=== PATIENT | female | born 1950 | race Caucasian/White ===

== ENCOUNTER 2019-10-19 06:35 | Emergency (ER) | payer MEDICAID, SELFPAY ==
[2019-10-19 06:48] VITALS: BP 159/81; PULSE 99; RESP 18; TEMP 36.9; O2SAT 96; BMI 32.3
--- NOTE | 2019-10-19 07:05 | CT_ITS ---
PROCEDURE: CT ABDOMEN PELVIS W CON CLINICAL INDICATION: right abd pain Right upper quadrant pain COMPARISON: No exams were available for comparison TECHNIQUE: IV Contrast: 75ML OPTIRAY 350 Oral Contrast None Axial images obtained with sagittal and coronal reformats. All CT scans at the facility use one or more dose reduction, viz: automated exposure control, ma/kV adjustment per patient size (including targeted exams where dose is matched to indication, i.e. head), or iterative reconstruction technique. FINDINGS: There are coronary artery calcifications. There is a well-circumscribed hypodense lesion in the right hepatic lobe lobular in nature measuring 2.2 cm and may represent a hepatic cyst. There is a small hiatal hernia. The gallbladder is slightly distended. The spleen, adrenal glands, and pancreas have an unremarkable appearance. There is cortical scarring of the right kidney with a right renal stone at 6 mm. The scarring is peripheral to the stone. This could even represent dystrophic parenchymal calcification unchanged from the previous study. No ureteral calculi. There is a mild amount of retained colonic feces. There is a ventral abdominal wall hernia containing a loop of large bowel. The hernia defect is 6.9 cm in with. The this hernia is 4.5 cm superior to an umbilical hernia which contains fat. There is also an additional ventral abdominal wall hernia containing fat which is 10 cm inferior to the xiphoid process. There is mild thickening of the distal stomach and proximal duodenum with mild surrounding fat haziness. No evidence of appendicitis. There is sigmoid diverticulosis but no evidence of diverticulitis. No abnormal fluid collections are evident. No acute bony anomaly. IMPRESSION: 1. Mild wall thickening of the distal stomach and proximal duodenum with mild surrounding fat haziness which may be seen with peptic ulcer disease/duodenitis/gastritis 2. Distended gallbladder. 3. There are at least 3 ventral abdominal wall hernias as described above. There is a loop of transverse colon within the mid ventral abdominal wall hernia with fat within the hernia superior to this and fat within the umbilical hernia. 4. Sigmoid diverticulosis. 5. Other nonacute findings as described above. Dictated by: Brian Whitney MD 10/19/2019 08:50 Brian Whitney MD in [place] 10/19/2019 08:50
[2019-10-19 07:13] VITALS: BP 134/74; PULSE 95
--- NOTE | 2019-10-19 07:16 | HMH.EDNVD ---
ED Disposition Condition on Discharge: Fair - Critical Care Critical Care Time: No <Nehemiah Matute - Last Filed: 10/19/19 07:52> Condition on Discharge: Fair <Sudarshan Moore - Last Filed: 10/19/19 08:30> Clinical Impression: Peptic ulcer disease Abdominal pain Qualifiers: Abdominal location: right lower quadrant Qualified Code(s): R10.31 - Right lower quadrant pain Disposition: Home, Self-Care Instructions: DI for Acute Abdomen, DI for Peptic Ulcer Prescriptions: Sucralfate [Carafate 1gm Tab] 1 gm PO ACHS #20 tab Transmission Status: [facility] to [facility] Pantoprazole Sodium [Protonix 40mg tablet] 40 mg PO DAILY #30 tab Transmission Status: Pending to [facility] Referrals: PCP,No [Primary Care Provider] - Attestation: On 10/19/19, the high probability of a clinically significant, sudden or life threatening deterioration of the following system(s) required my full and direct attention, intervention and personal management. The time I documented below is in addition to time spent performing reported procedures but includes the following listed in this critical care notation. Medical Decision Making - Medical Records Medical records reviewed: Yes: I reviewed the patient's medical records. - Terence Inquiry Pt receiving controlled substance: No - Lab Data Lab results reviewed: Yes: I reviewed the patient's lab results. Result diagrams: 10/19/19 07:01 10/19/19 07:01 <Nehemiah Matute - Last Filed: 10/19/19 07:52> - Lab Data Result diagrams: 10/19/19 07:01 10/19/19 07:01 - CT Data CT Scan: Abdomen, Pelvis Time Received: 08:27 - Reevaluation(s) Time: 08:30 <Sudarshan Moore - Last Filed: 10/19/19 08:30> Vital Signs: 10/19/19 06:48 10/19/19 07:13 10/19/19 07:29 Temperature 98.4 F Temperature Source Oral Pulse Rate [Right] 99 H 95 H 95 H Respiratory Rate 18 Blood Pressure [Right Arm] 159/81 H 134/74 125/70 Blood Pressure Mean [Right Arm] 107 94 88 Blood Pressure Source [Right Arm] Blood Pressure Position [Right Arm] Sitting Sitting 02 Sat by Pulse Oximetry 96 Oxygen Delivery Method Room Air 10/19/19 08:00 Temperature Temperature Source Pulse Rate [Right] 72 Respiratory Rate 20 Blood Pressure [Right Arm] 142/65 H Blood Pressure Mean [Right Arm] 90 Blood Pressure Source [Right Arm] Automatic Cuff Blood Pressure Position [Right Arm] Supine 02 Sat by Pulse Oximetry 92 L Oxygen Delivery Method Room Air - Lab Data Lab Results 10/19/19 07:01: WBC 8.7, RBC 5.26, Hgb 16.1, Hct 48.0 H, MCV 91.3, MCH 30.6, MCHC 33.5, RDW 13.8, Plt Count 218, MPV 7.9, Neut % (Auto) 49.5, Lymph % (Auto) 43.0, [place] % (Auto) 4.2, Eos % (Auto) 2.6, Baso % (Auto) 0.8, Neut # (Auto) 4.3, Lymph # (Auto) 3.8, [place] # (Auto) 0.4, Eos # (Auto) 0.2, Baso # (Auto) 0.1, ESR 14 10/19/19 07:01: Total Bilirubin 0.6, Direct Bilirubin 0.1, Conjugated Bilirubin 0.0, Indirect Bilirubin 0.5, Unconjugated Bilirubin 0.5, AST 61 H, ALT 65, Alkaline Phosphatase 118, C-Reactive Protein 8.1 H, Total Protein 7.8, Albumin 4.1, Amylase 59, Lipase 74 10/19/19 07:01: Lactate 1.8 10/19/19 07:01: Sodium 141, Potassium 4.2, Chloride 109 H, Carbon Dioxide 22, Anion Gap 14.2, BUN 12, Creatinine 0.70, Estimated Creat Clear 77, Estimated GFR 83, Est GFR ( Amer) 101, Glucose 128 H, Calcium 9.3 10/19/19 07:45: Urine Color Yellow, Urine Appearance Clear, Urine pH 7.0, Ur Specific [place] <= 1.005, Urine Protein Negative, Urine Glucose (UA) Negative, Urine Ketones Negative, Urine Blood Negative, Urine Nitrate Negative, Urine Bilirubin Negative, Urine Urobilinogen 0.2, Ur Leukocyte Esterase Trace, Urine RBC Occasional, Urine WBC 10-20, Ur Squamous Epith Cells 3-5, Urine Bacteria 1+ Orders (Tests/Meds): ED MEDICATIONS Generic Name Dose Route Start Last Admin Trade Name Freq PRN Reason Stop Dose Admin Sodium Chloride 8 ml 10/19/19 07:00 10/19/19 07:05 Sodium Chloride 0.9% 1
[2019-10-19 07:17] LABS: Basophils # 0.1 K/mm3 (0-0.2); Basophils % 0.8 % (0.1-2.0); Eosinophils # 0.2 K/mm3 (0.0-0.4); Eosinophils % 2.6 % (0.1-12.0); Hemoglobin 16.1 g/dL (12.2-16.2); Lymphocytes # 3.8 K/mm3 (0.7-4.5); Mean Corpuscular HGB Conc 33.5 g/dL (31.8-35.4); Mean Corpuscular Hemoglobin 30.6 pg (27.0-31.2); Mean Corpuscular Volume 91.3 fl (81-99); Mean Platelet Volume 7.9 fl (7.4-10.4); Monocytes # 0.4 K/mm3 (0.1-1.0); Monocytes % 4.2 % (1.7-9.3); Neutrophils # 4.3 K/mm3 (1.8-7.8); Neutrophils % 49.5 % (37.0-80.0); Platelet Count 218 K/mm3 (142-424); Red Blood Count 5.26 M/mm3 (4.20-5.40); Red Cell Distribution Width 13.8 % (11.5-17.5); White Blood Count 8.7 K/mm3 (4.8-10.8)
[2019-10-19 07:18] LABS: Chloride 109 mmol/L (98-107); Potassium 4.2 mmoL/L (3.5-5.1); Sodium 141 mmol/L (136-145)
[2019-10-19 07:20] LABS: Alanine Aminotransferase 65 U/L (12-78); Alkaline Phosphatase 118 U/L (38-126); Amylase 59 U/L (30-110); Aspartate Amino Transferase 61 U/L (14-36); Bilirubin,Direct 0.1 mg/dl (0.0-0.4); Bilirubin,Indirect 0.5 mg/dL (0.0-0.9); Bilirubin,Total 0.6 mg/dl (0.2-1.3); Bilirubin,Unconjugated 0.5 mg/dL (0.0-1.1)
[2019-10-19 07:21] LABS: Albumin Level 4.1 g/dl (3.5-5.0); Anion Gap 14.2 mEq/L (5-15); Blood Urea Nitrogen 12 mg/dl (7-17); Carbon Dioxide 22 mmol/L (22.0-30.0); Creatinine Clearance Estimated 77 mL/min (50-200); Estimated Glomerular Filt Rate 83 ml/min (>60); GFR (African American) 101 ML/MIN (>60); Lipase 74 U/L (23-300); Total Protein,Serum 7.8 g/dl (6.3-8.2)
[2019-10-19 07:22] LABS: Calcium 9.3 mg/dl (8.4-10.2); Glucose 128 mg/dl (74-100); Lactic Acid 1.8 mmol/L (0.7-2.1)
[2019-10-19 07:26] LABS: C-Reactive Protein 8.1 mg/L (0-4)
[2019-10-19 07:29] VITALS: BP 125/70; PULSE 95
[2019-10-19 07:45] LABS: Erythrocyte Sedimentation Rate 14 mm/hr (0-30)
[2019-10-19 07:58] LABS: Microscopic, Urine URINE MICROSCOPIC (MICROSCOPIC)
[2019-10-19 08:00] VITALS: BP 142/65; PULSE 72; RESP 20; O2SAT 92
[2019-10-19 08:00] LABS: Appearance,Urine CLEAR (Clear); Bilirubin,Urine Negative (Negative); Blood, Urine Negative (Negative); Color,Urine YELLOW (Yellow); Glucose,Urine (UA) Negative (Negative); Ketones,Urine Negative (Negative); Leukocyte Esterase,Urine TRACE (Negative); Nitrate,Urine Negative (Negative); Protein,Urine Negative (Negative); Specific Gravity, Urine <= 1.005 (1.005-1.030); Urobilinogen,Urine 0.2 EU/dl (0.2)
[2019-10-19 08:10] LABS: Bacteria,Urine 1+ /lpf; RBC,Urine Occasional #/hpf (0-3)
--- NOTE | 2019-10-19 08:25 | PC.NURSE ---
Dr Narvaez in with pt
[2019-10-19 08:45] VITALS: BP 125/78; PULSE 95; RESP 16; TEMP 36.6; O2SAT 98
== END 2019-10-19 08:47 | disposition home or self-care (01) ==
PROVIDERS: Emergency Provider Emergency Medicine
DX: K27.9 Peptic ulcer, site unspecified, unspecified as acute or chronic, without hemorrhage or perforation (principal); Z87.891 Personal history of nicotine dependence; Z88.5 Allergy status to narcotic agent; Z79.899 Other long term (current) drug therapy
CPT/HCPCS: 74177; 80048; 80076; 81001; 82150; 83605; 83690; 85025; 85651; 86140; 87040; 87086; 87088; 87186; 96365; 96375; 96376; 99284; J2405; Q9967

== ENCOUNTER 2021-09-20 13:35 | Inpatient (IN) | payer OTHER, SELFPAY ==
[2021-09-20] VITALS (11 sets, daily range): BP systolic 103–143; BP diastolic 62–85; PULSE 82–96; RESP 18–22; TEMP 36.4–36.9; O2SAT 86–95; BMI 33.3; BMI 34.9
--- NOTE | 2021-09-20 13:44 | XR_ITS ---
PROCEDURE INFORMATION: Exam: XR Chest Exam date and time: 09/20/2021 3:03 PM Age: 71 years old Clinical indication: Shortness of breath; Additional info: Short of breath TECHNIQUE: Imaging protocol: Radiologic exam of the chest. Views: 1 view. COMPARISON: CT ANGIO CHEST PE PROTOCOL 09/20/2021 2:35 PM FINDINGS: Lungs: Atelectatic and/or early infiltrative changes noted within both lung bases. Pleural spaces: There are no pleural effusions present. Heart/Mediastinum: Unremarkable. No cardiomegaly. Diaphragm: There is nonspecific elevation of the right hemidiaphragm. Bones/joints: The thoracic spine demonstrates mild degenerative changes at multiple levels. IMPRESSION: Atelectatic and/or early infiltrative changes noted within both lung bases.
--- NOTE | 2021-09-20 13:44 | CT_ITS ---
PROCEDURE INFORMATION: Exam: CTA Chest With Contrast Exam date and time: 09/20/2021 2:35 PM Age: 71 years old Clinical indication: Shortness of breath; Additional info: Hemoptysis, post-covid TECHNIQUE: Imaging protocol: Computed tomographic angiography of the chest with contrast. 3D rendering (Not supervised by radiologist): MIP and/or 3D reconstructed images were created by the technologist. Radiation optimization: All CT scans at this facility use at least one of these dose optimization techniques: automated exposure control; mA and/or kV adjustment per patient size (includes targeted exams where dose is matched to clinical indication); or iterative reconstruction. Contrast material: ISOVUE 370; Contrast volume: 75 ml; Contrast route: INTRAVENOUS (IV); COMPARISON: CR CXR1 CHEST-PORTABLE 01/08/2016 12:11 PM FINDINGS: Pulmonary arteries: No evidence of pulmonary embolism. Aorta: No evidence of aortic dissection. Lungs: Patchy airspace opacities noted within both lung bases. Pleural spaces: Small bilateral pleural effusions, greater on the right. Heart: Unremarkable. No cardiomegaly. No pericardial effusion. Lymph nodes: There is no evidence of mesenteric lymphadenopathy. Bones/joints: The thoracic spine demonstrates mild degenerative changes at multiple levels. Soft tissues: Unremarkable. IMPRESSION: 1. No evidence of pulmonary embolism. 2. No evidence of aortic dissection. 3. Patchy airspace opacities noted within both lung bases. 4. Small bilateral pleural effusions, greater on the right.
--- NOTE | 2021-09-20 13:45 | HMH.EDGENADL ---
ED Disposition Clinical Impression: Pneumonia Qualifiers: Pneumonia type: due to unspecified organism Laterality: bilateral Lung location: lower lobe of lung Qualified Code(s): J18.9 - Pneumonia, unspecified organism Respiratory failure with hypoxia Qualifiers: Chronicity: acute Qualified Code(s): J96.01 - Acute respiratory failure with hypoxia Disposition: Admitted As Inpatient Condition on Discharge: Serious Referrals: Provider,Referral, MD [Primary Care Provider] - Time of Disposition: 15:29 - Critical Care Critical Care Time: Yes (35 minutes) Attestation: On , the high probability of a clinically significant, sudden or life threatening deterioration of the following system(s) required my full and direct attention, intervention and personal management. The time I documented below is in addition to time spent performing reported procedures but includes the following listed in this critical care notation. Vital system(s) involved:: Respiratory Failure My critical care processes included: Assessment & monitoring of V/S, Initial and Re-exams, Data Review/Interpretation, Coordinating Care, Medication Orders and management, Documentation Medical Decision Making - Medical Records Medical records reviewed: Yes: I reviewed the patient's medical records. - Terence Inquiry Pt receiving controlled substance: No Vital Signs: 09/20/21 13:36 09/20/21 14:01 09/20/21 14:30 Temperature 98.5 F Temperature Source Oral Pulse Rate 94 H 85 Pulse Rate [Left Radial] 96 H Respiratory Rate 18 18 18 Blood Pressure 119/75 126/75 Blood Pressure [Right Arm] 143/84 H Blood Pressure Mean 89 92 Blood Pressure Mean [Right Arm] 103 Blood Pressure Source [Right Arm] Automatic Cuff Blood Pressure Position [Right Arm] Sitting 02 Sat by Pulse Oximetry 86 L 89 L 91 L Oxygen Delivery Method Room Air Nasal Cannula Nasal Cannula Oxygen Flow Rate (LPM) 4 10 09/20/21 15:00 09/20/21 15:31 Temperature Temperature Source Pulse Rate 86 85 Pulse Rate [Left Radial] Respiratory Rate 18 18 Blood Pressure 124/63 103/66 L Blood Pressure [Right Arm] Blood Pressure Mean 83 73 Blood Pressure Mean [Right Arm] Blood Pressure Source [Right Arm] Blood Pressure Position [Right Arm] 02 Sat by Pulse Oximetry 91 L 90 L Oxygen Delivery Method Nasal Cannula Nasal Cannula Oxygen Flow Rate (LPM) 10 10 - Lab Data Lab Results 09/20/21 13:44: VBG pH 7.42 H, VBG pCO2 38.8, VBG pO2 34.7, VBG HCO3 24.8, VBG Total CO2 26.0, VBG O2 Saturation 66.5, VBG Base Excess 0.4 09/20/21 13:45: WBC 6.1, RBC 5.15, Hgb 15.2, Hct 45.5, MCV 88.5, MCH 29.6, MCHC 33.5, RDW 13.6, Plt Count 222, MPV 7.5, Neut % (Auto) 50.0, Lymph % (Auto) 38.1, [place] % (Auto) 9.7 H, Eos % (Auto) 0.6, Baso % (Auto) 1.8, Neut # (Auto) 3.1, Lymph # (Auto) 2.3, [place] # (Auto) 0.6, Eos # (Auto) 0.0, Baso # (Auto) 0.1 09/20/21 13:45: Sodium 136, Potassium 3.6, Chloride 101, Carbon Dioxide 27, Anion Gap 11.6, BUN 9, Creatinine 0.60, Estimated Creat Clear 75, Estimated GFR 99, Est GFR ( Amer) 120, Glucose 114 H, Calcium 8.4, Total Bilirubin 0.6, AST 47 H, ALT 39, Alkaline Phosphatase 100, Troponin I < 0.01, NT-Pro-B Natriuret Pep 103, Total Protein 7.7, Albumin 3.8, Globulin 3.9 H, Albumin/Globulin Ratio 1.0 L Result diagrams: 09/20/21 13:45 09/20/21 13:45 Orders (Tests/Meds): ED MEDICATIONS Generic Name Dose Route Start Last Admin Trade Name Freq PRN Reason Stop Dose Admin Azithromycin 500 mg/ Sodium 250 mls @ 250 mls/hr 09/20/21 15:30 Chloride IV 10/04/21 15:29 Q24H THEE Ceftriaxone Sodium 1 gm/ 50 mls @ 100 mls/hr 09/20/21 15:30 09/20/21 15:44 Sodium Chloride IV 10/04/21 15:29 100 mls/hr Q24H THEE Administration Discontinued Medications Generic Name Dose Route Start Last Admin Trade Name Freq PRN Reason Stop Dose Admin Iopamidol 75 ml 09/20/21 14:49 09/20/21 14:49 Iopamidol-370 (76%);100ml Bottle IV 09/20/21 14:50 75 ml ON
--- NOTE | 2021-09-20 14:05 | PC.NURSE ---
IV established and blood sent to the lab. RT called for vbg order. family at the bedside.
[2021-09-20 14:13] LABS: VBG Base Excess 0.4 mmol/L (-2.4-2.3); VBG HCO3 24.8 mmol/L (23-30); VBG Oxygen Saturation 66.5 % (50-70); VBG PCO2 38.8 mmol/L (35-51); VBG PH 7.42 mmol/L (7.31-7.41); VBG PO2 34.7 mmol/L (28-40)
[2021-09-20 14:17] LABS: Basophils # 0.1 K/mm3 (0-0.2); Basophils % 1.8 % (0.1-2.0); Eosinophils % 0.6 % (0.1-12.0); Hematocrit 45.5 % (37.0-47.0); Hemoglobin 15.2 g/dL (12.2-16.2); Lymphocytes # 2.3 K/mm3 (0.7-4.5); Lymphocytes % 38.1 % (10-50); Mean Corpuscular HGB Conc 33.5 g/dL (31.8-35.4); Mean Corpuscular Hemoglobin 29.6 pg (27.0-31.2); Mean Corpuscular Volume 88.5 fl (81-99); Mean Platelet Volume 7.5 fl (7.4-10.4); Monocytes # 0.6 K/mm3 (0.1-1.0); Monocytes % 9.7 % (1.7-9.3); Neutrophils # 3.1 K/mm3 (1.8-7.8); Platelet Count 222 K/mm3 (142-424); Red Blood Count 5.15 M/mm3 (4.20-5.40); Red Cell Distribution Width 13.6 % (11.5-17.5); White Blood Count 6.1 K/mm3 (4.8-10.8)
[2021-09-20 14:22] LABS: Alanine Aminotransferase 39 U/L (12-78); Albumin Level 3.8 g/dl (3.5-5.0); Alkaline Phosphatase 100 U/L (38-126); Anion Gap 11.6 mEq/L (5-15); Aspartate Amino Transferase 47 U/L (14-36); Bilirubin,Total 0.6 mg/dl (0.2-1.3); Blood Urea Nitrogen 9 mg/dl (7-17); Calcium 8.4 mg/dl (8.4-10.2); Carbon Dioxide 27 mmol/L (22.0-30.0); Chloride 101 mmol/L (98-107); Creatinine Clearance Estimated 75 mL/min (50-200); Estimated Glomerular Filt Rate 99 ml/min (>60); GFR (African American) 120 ML/MIN (>60); Globulin 3.9 g/dL (1.3-3.2); Glucose 114 mg/dl (74-100); Potassium 3.6 mmoL/L (3.5-5.1); Sodium 136 mmol/L (136-145); Total Protein,Serum 7.7 g/dl (6.3-8.2)
[2021-09-20 14:34] LABS: NT Pro Brain Natriuretic Pep. 103 pg/mL (0-125)
[2021-09-20 14:36] LABS: Troponin I < 0.01 ng/ml (0.00-0.034)
--- NOTE | 2021-09-20 14:36 | PC.NURSE ---
pt to radiology via wheelchair
--- NOTE | 2021-09-20 14:50 | PC.NURSE ---
pt returned from radiology
--- NOTE | 2021-09-20 14:55 | PC.NURSE ---
Rad at bedside
--- NOTE | 2021-09-20 14:55 | PC.NURSE ---
Urine sent to lab
[2021-09-20 14:58] LABS: Microscopic, Urine URINE MICROSCOPIC (MICROSCOPIC)
--- NOTE | 2021-09-20 15:05 | PC.NURSE ---
SPOKE WITH RESP ABOUT POSSIBLE VAPOTHERM OR HIGH FLOW CANNULA , PT REFUSES BIPAP . RESP IS COMING DOWN TO ADJUST O2 PT IS ON 5 LPM VIA CANNULA O2 SAT 85%
[2021-09-20 15:06] LABS: Influenza A, PCR Not Detected (NotDetected); Influenza B, PCR Not Detected (NotDetected)
[2021-09-20 15:13] LABS: Appearance,Urine CLEAR (Clear); Bilirubin,Urine Negative (Negative); Blood, Urine Negative (Negative); Color,Urine YELLOW (Yellow); Glucose,Urine (UA) Negative (Negative); Ketones,Urine Negative (Negative); Leukocyte Esterase,Urine 1+ (Negative); Nitrate,Urine POSITIVE (Negative); PH,Urine 6.5 (5.0-8.5); Protein,Urine Negative (Negative); Specific Gravity, Urine <= 1.005 (1.005-1.030)
--- NOTE | 2021-09-20 15:17 | PC.NURSE ---
RT placed pt on 10LPM via high zita O2
--- NOTE | 2021-09-20 15:37 | PC.NURSE ---
PT UP TO KAJAL BRADY
--- NOTE | 2021-09-20 16:08 | PC.NURSE ---
spoke with dr bourgeois who agrees to admit. dry house worker notified.
--- NOTE | 2021-09-20 16:14 | PC.NURSE ---
calling for a tray for pt
[2021-09-20 16:17] LABS: Coronavirus 19, PCR Detected (NotDetected)
[2021-09-20 16:19] LABS: Bacteria,Urine 3+ /lpf; Squamous Epithelial Cell,Urine Occasional #/hpf (0-5)
--- NOTE | 2021-09-20 16:27 | PC.NURSE ---
PT EATING SANDWICH AND CHIPS
--- NOTE | 2021-09-20 16:34 | PC.NURSE ---
called report to everett almonte
--- NOTE | 2021-09-20 17:03 | PC.NURSE ---
PT BEING TRANSPORTED TO ACUTE CARE UNIT
[2021-09-20 17:34] LABS: Troponin I < 0.01 ng/ml (0.00-0.034)
--- NOTE | 2021-09-20 18:16 | PC.NURSE ---
Patient VSS on 10L HF NC with humidification; No acute distress noted at this time call light within reach bed at lowest level for safety; will continue to monitor.
[2021-09-21] VITALS: BP 125/71; PULSE 79; RESP 22; TEMP 36.7; O2SAT 94
[2021-09-21 04:00] VITALS: BP 116/66; PULSE 76; RESP 18; TEMP 36.8; O2SAT 91
[2021-09-21 04:40] VITALS: BMI 24.5
--- NOTE | 2021-09-21 04:43 | PC.NURSE ---
pt has been restless this shift, has been up to chair some this shift, pt was on high flow at beginning of shift, was turned up to 15L and saturations were not above 85-87%, global expansion sales director notified and pt was placed on vapotherm 20 L/100, sats since being placed on vapotherm have been 89-91%, pt has gotten up to BSC with desaturations noted to be 82-85%
--- NOTE | 2021-09-21 07:00 | XR_ITS ---
PROCEDURE INFORMATION: Exam: XR Chest Exam date and time: 09/21/2021 9:05 AM Age: 71 years old Clinical indication: Shortness of breath; Additional info: Pneumonia, covid TECHNIQUE: Imaging protocol: Radiologic exam of the chest. Views: 1 view. COMPARISON: 1. CR XR CHEST PORTABLE 09/20/2021 3:[address] ANGIO CHEST PE PROTOCOL 09/20/2021 2:35 PM FINDINGS: Lungs: Ill-defined opacities again noted at the lung bases. Pleural spaces: Unremarkable. No pleural effusion. No pneumothorax. Heart/Mediastinum: Unremarkable. No cardiomegaly. Bones/joints: Degenerative changes of the spine. IMPRESSION: No significant change.
[2021-09-21 07:50] LABS: Basophils # 0.1 K/mm3 (0-0.2); Basophils % 1.1 % (0.1-2.0); Eosinophils # 0.1 K/mm3 (0.0-0.4); Eosinophils % 1.2 % (0.1-12.0); Hematocrit 45.2 % (37.0-47.0); Hemoglobin 15.4 g/dL (12.2-16.2); Lymphocytes # 1.5 K/mm3 (0.7-4.5); Lymphocytes % 28.9 % (10-50); Mean Corpuscular HGB Conc 34.1 g/dL (31.8-35.4); Mean Corpuscular Hemoglobin 29.8 pg (27.0-31.2); Mean Corpuscular Volume 87.4 fl (81-99); Mean Platelet Volume 7.7 fl (7.4-10.4); Monocytes # 0.2 K/mm3 (0.1-1.0); Monocytes % 4.3 % (1.7-9.3); Neutrophils # 3.3 K/mm3 (1.8-7.8); Neutrophils % 64.6 % (37.0-80.0); Platelet Count 258 K/mm3 (142-424); Red Blood Count 5.17 M/mm3 (4.20-5.40); Red Cell Distribution Width 13.5 % (11.5-17.5); White Blood Count 5.1 K/mm3 (4.8-10.8)
[2021-09-21 07:58] LABS: Anion Gap 10.1 mEq/L (5-15); Blood Urea Nitrogen 10 mg/dl (7-17); Calcium 8.8 mg/dl (8.4-10.2); Carbon Dioxide 27 mmol/L (22.0-30.0); Chloride 106 mmol/L (98-107); Creatinine Clearance Estimated 57 mL/min (50-200); Estimated Glomerular Filt Rate 99 ml/min (>60); GFR (African American) 120 ML/MIN (>60); Glucose 168 mg/dl (74-100); Potassium 4.1 mmoL/L (3.5-5.1); Sodium 139 mmol/L (136-145)
[2021-09-21 08:00] VITALS: BP 148/69; PULSE 87; RESP 18; TEMP 36.6; O2SAT 95; O2SAT 97
--- NOTE | 2021-09-21 08:35 | P.CONPHA_ITS ---
[facility] VTE Monitoring - Patient Demographics Admission date: 09/21/21 Report Date: 09/21/21 Time: 08:35 Allergies/Adverse Reactions: Patient Allergies codeine [CODEINE] Allergy (Unknown, Verified 09/20/21 16:29) oxycodone [OXYCODONE] Allergy (Unknown, Verified 09/20/21 16:29) Height: 1.68 m Weight: 69.264 kg Patient Problems: Current Active Problems Pneumonia (Acute) Respiratory failure with hypoxia (Acute) - VTE Risk Labs: VTE Related Lab Results Hgb 15.4 g/dL (12.2-16.2) 09/21/21 07:41 Hct 45.2 % (37.0-47.0) 09/21/21 07:41 Plt Count 258 K/mm3 (142-424) 09/21/21 07:41 BUN 10 mg/dl (7-17) 09/21/21 07:41 Creatinine 0.60 mg/dl (0.52-1.04) 09/21/21 07:41 Estimated Creat Clear 57 mL/min (50-200) 09/21/21 07:41 Was VTE Risk Assessment Performed: Yes VTE Risk Level: Low Risk Clinical Trial Participant: No - Prophylaxis VTE Prophylaxis Ordered?: Yes Types of VTE Prophylaxis: TEDS Knee High Location of Applied Device: Bilateral Lower Extremeties
--- NOTE | 2021-09-21 09:30 | HMH.HP ---
*Admission Date: 09/21/21 *Chief complaint: shortness of breath *History of present illness: Ms. Wing is a 71-year-old female presenting to the emergency department last evening with cough and shortness of breath. She was diagnosed with COVID-19 2 weeks ago. Since then she has felt generally unwell, fatigued, rundown. She has had a cough that is constant and productive. Initially it was productive of sputum an in the last 2 days she has been coughing up chunks of dark red blood. She feels like she is breathing fast, unable to get enough air. Symptoms are worse when walking or exerting. Improved with rest. No chest pain, abdominal pain, nausea, vomiting. History of tobacco use disorder, quit about 6 years ago. She has a COPD, does not use inhalers or home oxygen. No recent antibiotic or steroid use. No leg swelling. No history of DVT or PE. She evaluated the emergency room. O2 sats on arrival were 88% on room air. She was initially started on 2 L of nasal oxygen and titrated to 4 L. CBC showed a normal white count. Venous blood gas showed no acidosis or CO2 retention. CT scan of the chest showed bilateral opacities and small pleural effusions. No pulmonary embolus. She was subsequent mated for further evaluation and treatment. Overnight she continued to be mildly hypoxic with O2 sats down to 87%. She was switched from high flow O2 to Vapotherm and O2 sats are now running in the mid 90s. She however is very anxious and quite adamant that she does not want to be placed on a mask or a ventilator. She states if I am going to I just want to go home and be with my family . [facility] History Medical History: Reports:: Atrial Fibrillation, Chronic Obstructive Pulmonary Disease (COPD), Gastroesophageal Reflux Disease(GERD) Denies:: Cancer, Diabetes Mellitus Type 1, Diabetes Mellitus Type 2, Internal Pacemaker, MRSA *Have you ever received a pneumonia vaccine?: No *Have you received a flu vaccine this season?: No Other Medical History: Reports: Other (peptic ulcer disease; diverticulosis) Comment:: She has a history of rheumatic fever as a child and having a heart attack at age 20. She, however has never been on heart medication. Other Surgeries: Yes: Tubal Ligation, Other (Patching of perforated duodenal ulcer 2015/Dr. Jay). No: Pacemaker Amputation: No Fractures: No - *Social History Last grade of school completed: 9th or 10th Smoking Status: Former smoker (Quit 6 years ago) Tobacco Type: cigarettes Alcohol Intake: never Substance Use Type: denies use *Occupational Status:: retired Housing: house Household Members: spouse, family *Travel in the last 8 weeks: None Family Hx:: No significant family history Review of Systems - Constitutional Reports lack of energy, Reports malaise, Reports weakness - Eyes Denies change in vision - ENT Reports dry mouth, Reports difficulty swallowing, Reports nasal congestion - *Cardiovascular Reports shortness of breath, Reports shortness of breath with activity, Denies chest pain, Denies irregular heart rhythm, Denies leg swelling, Denies rapid, pounding, or irregular heartbeat - *Respiratory Reports other (See HPI) - *Gastrointestinal Reports heartburn, Denies abdominal pain, Denies change in bowel habits - *Genitourinary Denies difficulty urinating - *Musculoskeletal Denies muscle cramps - Integumentary/Breasts Denies change in skin color - *Neurologic Reports weakness, Denies confusion, Denies dizziness, Denies localized weakness, Denies headache(s) Meds Home Medications Medication Instructions Recorded Confirmed Type No Known Home Medications 09/21/21 09/21/21 History Allergies Allergy/AdvReac Type Severity Reaction Status Date / Time codeine [CODEINE] Allergy Unknown Verified 09/20/21 16:29 oxycodone [OXYCODONE] Allergy Unknown Verified 09/20/21 16:29 Exam Vital signs and Labs for Last 24 Hours: Temp Pulse Resp BP Pulse Ox 97.9 F
--- NOTE | 2021-09-21 11:31 | PC.NURSE ---
1040-Spoke to Gigi CARBAJAL at this time regarding patient visitation. Gigi CARBAJAL approved for daughter to visit with patient as long as she wears her N95 while visiting. Informed patients daughter at this time and instructed her that she must wear her N95 while visiting, daughter was agreeable and verbalized understanding.
[2021-09-21 12:00] VITALS: BP 146/86; PULSE 85; RESP 20; TEMP 36.6; O2SAT 95
[2021-09-21 16:00] VITALS: BP 142/86; PULSE 82; RESP 18; TEMP 36.6; O2SAT 96
[2021-09-21 20:00] VITALS: BP 141/85; PULSE 79; RESP 19; TEMP 36.7; O2SAT 91
[2021-09-22] VITALS (8 sets, daily range): BP systolic 117–139; BP diastolic 67–84; PULSE 74–97; RESP 18–20; TEMP 36.4–36.7; O2SAT 90–98; BMI 29.0; BMI 28.7
--- NOTE | 2021-09-22 04:26 | PC.NURSE ---
Pt has rested well this shift. Alert and oriented x4. Bilateral lung sounds are diminished with expiratory ronchi on the right side. Pt remains on vapotherm with settings at 35LPM and 100% FiO2, tolerating well. Sats have been 90-92%. Her O2 sat did drop to 85% a couple of times when vapotherm was out of her nose. Pt has c/o a cough and lung pain on inspiration. Medicated per APR for pain. VSS.
--- NOTE | 2021-09-22 08:25 | P.PN_ITS ---
Internal Medicine - PN: Subj *Date: 09/22/21 *Time: 08:25 Interval history: She rested a little better last night. She is more calm and less short of breath this morning. Still has cough and reports some hemoptysis last night with right sided pleuritic type pain. Appetite a little better. She continues on Vapotherm with satisfactory O2 saturations Exam Vital signs and Labs for Last 24 Hours: Temp Pulse Resp BP Pulse Ox 97.9 F 97 H 18 120/83 92 L 09/22/21 16:00 09/22/21 16:00 09/22/21 16:00 09/22/21 16:00 09/22/21 16:00 Laboratory Results - last 24 hr 09/22/21 11:40: C-Reactive Protein 26.6 H I & O for Last 24 hours: Intake & Output 09/20/21 09/21/21 09/22/21 09/23/21 11:59 11:59 11:59 11:59 Intake Total 600 / 600 1860 / 1860 360 / 360 Output Total 800 / 800 1050 / 1050 1150 / 1150 Balance -200 / -200 810 / 810 -790 / -790 Weight 152 lb 11.2 oz 178 lb 9.191 oz Microbiology Reports for the Last 24 Hours: Microbiology 09/21/21 09:45 Sputum - Expectorated Sputum Gram Stain - Final 09/20/21 14:53 Urine,Clean Catch Urine Culture - Final Escherichia coli Narrative: She is sitting up in chair at bedside. Mild dyspnea with normal conversation. Color is good. Chest with bibasilar rales and scattered rhonchi. No wheezes. Heart is regular. Extremities no edema Assessment and Plan (1) COVID-19 virus infection Status: Acute Category: Medical Code(s): U07.1 - COVID-19 (2) Pneumonia Status: Acute Qualifiers: Pneumonia type: due to unspecified organism Laterality: bilateral Lung location: lower lobe of lung Qualified Code(s): J18.9 - Pneumonia, unspecified organism Category: Medical Code(s): J18.9 - Pneumonia, unspecified organism (3) Respiratory failure with hypoxia Status: Acute Qualifiers: Chronicity: acute Qualified Code(s): J96.01 - Acute respiratory failure wi th hypoxia Category: Medical Code(s): J96.91 - Respiratory failure, unspecified with hypoxia (4) COPD (chronic obstructive pulmonary disease) Status: Acute Category: Medical Code(s): J44.9 - Chronic obstructive pulmonary disease, unspecified (5) Anxiety Status: Acute Category: Medical Code(s): F41.9 - Anxiety disorder, unspecified (6) GERD (gastroesophageal reflux disease) Status: Acute Category: Medical Code(s): K21.9 - Gastro-esophageal reflux disease without esophagitis (7) Diverticulosis Status: Acute Category: Medical Code(s): K57.90 - Diverticulosis of intestine, part unspecified, without perforation or abscess without bleeding - Assessment and plan all Dx Assessment and Plan for all problems:: Continue current antibiotics pending culture results. Repeat chest x-ray. Consult with pulmonology.
--- NOTE | 2021-09-22 08:29 | XR_ITS ---
FINAL REPORT CLINICAL HISTORY: f/u pneumonia FINDINGS: A portable view of the chest was obtained. Comparison is made to a prior exam dated September 21, 2021. Cardiac and mediastinal silhouettes are within normal limits. There are increased interstitial markings with right basilar opacity that is stable. There is no pleural effusion or pneumothorax. IMPRESSION: Stable increased interstitial markings with right basilar opacity. Reviewed, Interpreted and Dictated by Juliette Byrnes MD Transcribed by Chio Rendon Authenticated and [facility]
--- NOTE | 2021-09-22 09:43 | HMH.PULMCON ---
*Admission Date: 09/21/21 *Reason for consult:: Acute on hypoxic respiratory failure, COVID-19 pneumonia *History of present illness: Ms. Wing is a 71-year-old female prior smoker greater than [id number] smoking history last smoked history diagnosed with COVID-19 pneumonia which she contracted from her daughter tested positive at home testing on 09/08/2021 with gradually worsening respiratory symptoms eventually presented to the ER and needing high flow Oxygen supplementations and pulmonary was called for further management. Patient is not vaccinated. She denies using any inhalers at baseline. Patient also complains of intermittent mild hemoptysis episodes. [facility] History Medical History: Reports:: Atrial Fibrillation, Chronic Obstructive Pulmonary Disease (COPD), Gastroesophageal Reflux Disease(GERD) Denies:: Cancer, Diabetes Mellitus Type 1, Diabetes Mellitus Type 2, Internal Pacemaker, MRSA *Have you ever received a pneumonia vaccine?: No *Have you received a flu vaccine this season?: No Other Medical History: Reports: Other (peptic ulcer disease; diverticulosis) Other Surgeries: Yes: Tubal Ligation, Other (Patching of perforated duodenal ulcer 2015/Dr. Jay). No: Pacemaker Amputation: No Fractures: No - *Social History Last grade of school completed: 9th or 10th Smoking Status: Former smoker (Quit 6 years ago) Tobacco Type: cigarettes Alcohol Intake: never Substance Use Type: denies use *Occupational Status:: retired Housing: house Household Members: spouse, family *Travel in the last 8 weeks: None Family Hx:: No significant family history ROS - Cons Reports body ache(s), Reports fatigue, Reports weakness - Eyes Reports blurry vision - ENT Denies difficulty swallowing - Card Reports shortness of breath, Reports shortness of breath with activity - Resp Respiratory: Reports chest congestion, Reports cough, Reports excessive phlegm production, Reports coughing up blood - GI Gastrointestingal: Denies: abdominal pain - Psych Denies thoughts of hurting/killing others, Denies thoughts of hurting/killing yourself Meds Home Medications Medication Instructions Recorded Confirmed Type No Known Home Medications 09/21/21 09/21/21 History Allergies Allergy/AdvReac Type Severity Reaction Status Date / Time codeine [CODEINE] Allergy Unknown Verified 09/20/21 16:29 oxycodone [OXYCODONE] Allergy Unknown Verified 09/20/21 16:29 Exam - Constitutional Constitutional:: Absent: no acute distress, comfortable - HENMT Exam HENMT: Present: normocephalic - Eye Exam Eyes:: Present: normal appearance both eyes and related structures - Neck Exam Neck:: Present: normal visual inspection - Respiratory Exam Respiratory:: Present: able to speak in complete sentences, respiratory distress, crackles. Absent: wheezing - Cardiovascular Exam Cardiac:: Present: S1, S2 - GI Exam GI:: Present: soft - Skin Exam Skin: Present: warm, no rash - Neurological Exam Neurological: Present: alert, awake - Extremities Exam Extremities: Present: no cyanosis, no clubbing, edema Internal Medicine - CN: Reslt - Labs CBC & Chem 7: 09/21/21 07:41 09/21/21 07:41 - ABG Interpretation ABG results: 09/20/21 13:44 VBG pH 7.42 H VBG pCO2 38.8 VBG pO2 34.7 VBG HCO3 24.8 VBG Total CO2 26.0 VBG O2 Saturation 66.5 VBG Base Excess 0.4 Assessment and Plan (1) COVID-19 virus infection Status: Acute Category: Medical Code(s): U07.1 - COVID-19 (2) Pneumonia Status: Acute Qualifiers: Pneumonia type: due to unspecified organism Laterality: bilateral Lung location: lower lobe of lung Qualified Code(s): J18.9 - Pneumonia, unspecified organism Category: Medical Code(s): J18.9 - Pneumonia, unspecified organism (3) Respiratory failure with hypoxia Status: Acute Qualifiers: Chronicity: acute Qualified Code(s): J96.01 - Acute respiratory failure with hypoxia
[2021-09-22 12:15] LABS: C-Reactive Protein 26.6 mg/L (0-4)
--- NOTE | 2021-09-22 17:34 | PC.NURSE ---
pt A&OX4, bilateral lung sounds are deminished. she has a productive cough with red tinged sputum. She has vapotherm set at 30 L and 70% FiO2, tolerating well. up to chair independently. no complaints of pain this shift.
[2021-09-23] VITALS (8 sets, daily range): BP systolic 113–141; BP diastolic 67–85; PULSE 79–97; RESP 17–22; TEMP 36.3–36.9; O2SAT 91–98; BMI 28.8
--- NOTE | 2021-09-23 03:58 | PC.NURSE ---
Pt is alert and oriented x4, has been resting throughout the shift. Pt is on vapotherm 30L and 70% FiO2, O2 sat >90%. Lung sounds are diminished but clear bilaterally. Pt has no complaints this shift. Pt has been up to BSC with standby assist.
--- NOTE | 2021-09-23 09:31 | HMH.PULMPN ---
Internal Medicine - PN: Subj *Date: 09/23/21 *Time: 10:53 Interval history: No acute respiratory events overnight. Exam - Constitutional Constitutional:: Absent: no acute distress, comfortable - HENMT Exam HENMT: Present: normocephalic - Eye Exam Eyes:: Present: normal appearance both eyes and related structures - Neck Exam Neck:: Present: normal visual inspection - Respiratory Exam Respiratory:: Present: able to speak in complete sentences, respiratory distress, crackles. Absent: wheezing - Cardiovascular Exam Cardiac:: Present: S1, S2 - GI Exam GI:: Present: soft - Skin Exam Skin: Present: warm - Neurological Exam Neurological: Present: alert, awake - Extremities Exam Extremities: Present: no cyanosis, no clubbing, edema Assessment and Plan (1) COVID-19 virus infection Status: Acute Category: Medical Code(s): U07.1 - COVID-19 (2) Pneumonia Status: Acute Qualifiers: Pneumonia type: due to unspecified organism Laterality: bilateral Lung location: lower lobe of lung Qualified Code(s): J18.9 - Pneumonia, unspecified organism Category: Medical Code(s): J18.9 - Pneumonia, unspecified organism (3) Respiratory failure with hypoxia Status: Acute Qualifiers: Chronicity: acute Qualified Code(s): J96.01 - Acute respiratory failure with hypoxia Category: Medical Code(s): J96.91 - Respiratory failure, unspecified with hypoxia (4) COPD (chronic obstructive pulmonary disease) Status: Acute Category: Medical Code(s): J44.9 - Chronic obstructive pulmonary disease, unspecified (5) Anxiety Status: Acute Category: Medical Code(s): F41.9 - Anxiety disorder, unspecified (6) GERD (gastroesophageal reflux disease) Status: Acute Category: Medical Code(s): K21.9 - Gastro-esophageal reflux disease without esophagitis (7) Diverticulosis Status: Acute Category: Medical Code(s): K57.90 - Diverticulosis of intestine, part unspecified, without perforation or abscess without bleeding - Assessment and plan all Dx Assessment and Plan for all problems:: #Acute hypoxic respiratory failure: # COVID-19 pneumonia: 71-year-old female prior smoker greater than [id number] smoking history last smoked 6 years ago Not vaccinated for COVID-19. Tested positive home testing on 09/08/2021, gradually worsening respiratory symptoms since then admits cough with worsening productive phlegm along with intermittent mild hemoptysis episodes. COVID-19 PCR positive, No evidence of leukocytosis. VBG on admission 7.42, [id number] and 34.7 CTA on admission no evidence of pulmonary embolism bilateral diffuse emphysematous changes along with groundglass opacities. No dense consolidation noted. Tiny right pleural effusion. Patient on admission appeared to be in severe respiratory distress. Bibasilar crackles and bilateral 1+ lower extremity edema. No wheezing on auscultation. On high flow nasal cannula 35 L 100% saturating 95%. Interval update: No acute respiratory vents. CRP elevated at 26.6. Respiratory status continued to improve. Requirements weaned to 40 L 55% this morning. We will continue to wean as tolerated. Denies any more episodes of hemoptysis. Plan: -Lasix 40 mg IV once -Initiate proning protocol -Continue high flow nasal oxygen supplementation -Initiate Advair 500 twice daily scheduled along with Combivent every 6 hours/DuoNebs every 6 hours on as-needed basis. -Dexamethasone 6 mg IV daily -Continue ceftriaxone azithromycin, follow with sputum and blood cultures. Follow with CRP. -Recommend chemical DVT prophylaxis and GI ulcer prophylaxis #Thank you for involving pulmonary in this patient care. We will continue to follow.
[2021-09-23 09:54] LABS: Basophils # 0.1 K/mm3 (0-0.2); Basophils % 0.6 % (0.1-2.0); Chloride 105 mmol/L (98-107); Eosinophils # 0.1 K/mm3 (0.0-0.4); Eosinophils % 0.9 % (0.1-12.0); Hematocrit 41.6 % (37.0-47.0); Hemoglobin 14.3 g/dL (12.2-16.2); Lymphocytes # 2.2 K/mm3 (0.7-4.5); Lymphocytes % 22.3 % (10-50); Mean Corpuscular HGB Conc 34.4 g/dL (31.8-35.4); Mean Corpuscular Hemoglobin 29.4 pg (27.0-31.2); Mean Corpuscular Volume 85.6 fl (81-99); Mean Platelet Volume 7.3 fl (7.4-10.4); Monocytes # 0.6 K/mm3 (0.1-1.0); Monocytes % 5.9 % (1.7-9.3); Neutrophils % 70.3 % (37.0-80.0); Platelet Count 344 K/mm3 (142-424); Potassium 3.7 mmoL/L (3.5-5.1); Red Blood Count 4.86 M/mm3 (4.20-5.40); Red Cell Distribution Width 13.4 % (11.5-17.5); Sodium 139 mmol/L (136-145)
[2021-09-23 09:57] LABS: Anion Gap 12.7 mEq/L (5-15); Blood Urea Nitrogen 14 mg/dl (7-17); Calcium 9.2 mg/dl (8.4-10.2); Carbon Dioxide 25 mmol/L (22.0-30.0); Creatinine Clearance Estimated 67 mL/min (50-200); Estimated Glomerular Filt Rate 99 ml/min (>60); GFR (African American) 120 ML/MIN (>60); Glucose 206 mg/dl (74-100)
--- NOTE | 2021-09-23 13:05 | HMH.ACPN2 ---
Internal Medicine - PN: Subj *Date: 09/23/21 *Time: 08:41 Interval history: I feel a lot better this morning . Slept through the night. No hemoptysis or pleuritic pain today. Appetite improving. Exam Vital signs and Labs for Last 24 Hours: Temp Pulse Resp BP Pulse Ox 97.3 F L 79 22 141/78 H 97 09/23/21 11:42 09/23/21 11:42 09/23/21 11:42 09/23/21 11:42 09/23/21 11:42 Laboratory Results - last 24 hr 09/23/21 09:37: WBC 10.0 D, RBC 4.86, Hgb 14.3, Hct 41.6, MCV 85.6, MCH 29.4, MCHC 34.4, RDW 13.4, Plt Count 344 D, MPV 7.3 L, Neut % (Auto) 70.3, Lymph % (Auto) 22.3, [place] % (Auto) 5.9, Eos % (Auto) 0.9, Baso % (Auto) 0.6, Neut # (Auto) 7.0, Lymph # (Auto) 2.2, [place] # (Auto) 0.6, Eos # (Auto) 0.1, Baso # (Auto) 0.1 09/23/21 09:37: Sodium 139, Potassium 3.7, Chloride 105, Carbon Dioxide 25, Anion Gap 12.7, BUN 14 D, Creatinine 0.60, Estimated Creat Clear 67, Estimated GFR 99, Est GFR ( Amer) 120, Glucose 206 H, Calcium 9.2 I & O for Last 24 hours: Intake & Output 09/21/21 09/22/21 09/23/21 09/24/21 11:59 11:59 11:59 11:59 Intake Total 600 / 600 1860 / 1860 960 / 960 Output Total 800 / 800 1050 / 1050 2200 / 2200 Balance -200 / -200 810 / 810 -1240 / -1240 Weight 152 lb 11.2 oz 178 lb 9.191 oz 179 lb 4.8 oz Microbiology Reports for the Last 24 Hours: Microbiology 09/21/21 09:45 Sputum - Expectorated Sputum Gram Stain - Final 09/21/21 09:45 Sputum - Expectorated Sputum Sputum Culture - Preliminary Narrative: She is up in the chair. Continues on Vapotherm. No respiratory distress. Lungs with generally diminished breath sounds. Few bibasilar crackles. No wheezes. Extremities no edema. Urine culture growing E. coli sensitive to ceftriaxone Assessment and Plan (1) COVID-19 virus infection Status: Acute Category: Medical Code(s): U07.1 - COVID-19 (2) Pneumonia Status: Acute Qualifiers: Pneumonia type: due to unspecified organism Laterality: bilateral Lung location: lower lobe of lung Qualified Code(s): J18.9 - Pneumonia, unspecified organism Category: Medical Code(s): J18.9 - Pneumonia, unspecified organism (3) Respiratory failure with hypoxia Status: Acute Qualifiers: Chronicity: acute Qualified Code(s): J96.01 - Acute respiratory failure with hypoxia Category: Medical Code(s): J96.91 - Respiratory failure, unspecified with hypoxia (4) COPD (chronic obstructive pulmonary disease) Status: Acute Category: Medical Code(s): J44.9 - Chronic obstructive pulmonary disease, unspecified (5) Anxiety Status: Acute Category: Medical Code(s): F41.9 - Anxiety disorder, unspecified (6) GERD (gastroesophageal reflux disease) Status: Acute Category: Medical Code(s): K21.9 - Gastro-esophageal reflux disease without esophagitis (7) Diverticulosis Status: Acute Category: Medical Code(s): K57.90 - Diverticulosis of intestine, part unspecified, without perforation or abscess without bleeding (8) E. coli UTI Status: Acute Category: Medical Code(s): N39.0 - Urinary tract infection, site not specified; B96.20 - Unspecified Escherichia coli [E. coli] as the cause of diseases classified elsewhere - Assessment and plan all Dx Assessment and Plan for all problems:: Pulmonology consult appreciated. Continue current antibiotics. Wean oxygen as tolerated.
--- NOTE | 2021-09-23 17:34 | PC.NURSE ---
pt is alert and oriented X4. she is on vapotherm at 30 L and 55% FiO2, O2 sats in the 90s. bilateral lung sounds are diminished but clear. a new IV was started in the left forearm. pt has been up to the chair. she has been to the BSC independently. no complaints of pain this shift.
--- NOTE | 2021-09-23 18:36 | PC.NURSE ---
Pt is wet with sweat that has saturated his clothes and sheets. He allowed us to do a bed change but he is refusing to allow us to put on a clean gown.
[2021-09-24] VITALS (11 sets, daily range): BP systolic 120–137; BP diastolic 66–79; PULSE 68–88; RESP 16–20; TEMP 36.4–36.8; O2SAT 86–98; BMI 26.4
--- NOTE | 2021-09-24 04:07 | PC.NURSE ---
pt has rested well this shift, remains on vapotherm 30L/70%, O2 sats 92-96%, using BSC with standby assist, no complaints of pain or SOA
[2021-09-24 07:29] LABS: Anion Gap 12.3 mEq/L (5-15); Blood Urea Nitrogen 15 mg/dl (7-17); Calcium 8.9 mg/dl (8.4-10.2); Carbon Dioxide 25 mmol/L (22.0-30.0); Chloride 105 mmol/L (98-107); Creatinine Clearance Estimated 62 mL/min (50-200); Estimated Glomerular Filt Rate 99 ml/min (>60); GFR (African American) 120 ML/MIN (>60); Glucose 129 mg/dl (74-100); Potassium 4.3 mmoL/L (3.5-5.1); Sodium 138 mmol/L (136-145)
--- NOTE | 2021-09-24 08:04 | P.PN_ITS ---
Internal Medicine - PN: Subj *Date: 09/24/21 *Time: 08:04 Exam Vital signs and Labs for Last 24 Hours: Temp Pulse Resp BP Pulse Ox 98 F 68 17 124/66 98 09/24/21 04:00 09/24/21 04:00 09/24/21 04:00 09/24/21 04:00 09/24/21 06:25 Laboratory Results - last 24 hr 09/23/21 09:37: WBC 10.0 D, RBC 4.86, Hgb 14.3, Hct 41.6, MCV 85.6, MCH 29.4, MCHC 34.4, RDW 13.4, Plt Count 344 D, MPV 7.3 L, Neut % (Auto) 70.3, Lymph % (Auto) 22.3, [place] % (Auto) 5.9, Eos % (Auto) 0.9, Baso % (Auto) 0.6, Neut # (Auto) 7.0, Lymph # (Auto) 2.2, [place] # (Auto) 0.6, Eos # (Auto) 0.1, Baso # (Auto) 0.1 09/23/21 09:37: Sodium 139, Potassium 3.7, Chloride 105, Carbon Dioxide 25, Anion Gap 12.7, BUN 14 D, Creatinine 0.60, Estimated Creat Clear 67, Estimated GFR 99, Est GFR ( Amer) 120, Glucose 206 H, Calcium 9.2 09/24/21 06:52: Sodium 138, Potassium 4.3, Chloride 105, Carbon Dioxide 25, Ani on Gap 12.3, BUN 15, Creatinine 0.60, Estimated Creat Clear 62, Estimated GFR 99, Est GFR ( Amer) 120, Glucose 129 H D, Calcium 8.9 I & O for Last 24 hours: Intake & Output 09/21/21 09/22/21 09/23/21 09/24/21 23:59 23:59 23:59 23:59 Intake Total 1979 / 1979 1080 / 1080 720 / 720 Output Total 1500 / 1500 1500 / 1500 1950 / 1950 1000 / 1000 Balance 480 / 480 -420 / -420 -1230 / -1230 -1000 / -1000 Weight 69.264 kg 81 kg 81.329 kg 74.48 kg Microbiology Reports for the Last 24 Hours: Microbiology 09/21/21 09:45 Sputum - Expectorated Sputum Gram Stain - Final 09/21/21 09:45 Sputum - Expectorated Sputum Sputum Culture - Preliminary Assessment and Plan (1) COVID-19 virus infection Status: Acute Category: Medical Code(s): U07.1 - COVID-19 (2) Pneumonia Status: Acute Qualifiers: Pneumonia type: due to unspecified organism Laterality: bilateral Lung location: lower lobe of lung Qualified Code(s): J18.9 - Pneumonia, unspecified organism Category: Medical Code(s): J18.9 - Pneumonia, unspecified organism (3) Respiratory failure with hypoxia Status: Acute Qualifiers: Chronicity: acute Qualified Code(s): J96.01 - Acute respiratory failure with hypoxia Category: Medical Code(s): J96.91 - Respiratory failure, unspecified with hypoxia (4) COPD (chronic obstructive pulmonary disease) Status: Acute Category: Medical Code(s): J44.9 - Chronic obstructive pulmonary disease, unspecified (5) Anxiety Status: Acute Category: Medical Code(s): F41.9 - Anxiety disorder, unspecified (6) GERD (gastroesophageal reflux disease) Status: Acute Category: Medical Code(s): K21.9 - Gastro-esophageal reflux disease without esophagitis (7) Diverticulosis Status: Acute Category: Medical Code(s): K57.90 - Diverticulosis of intestine, part unspecified, without perforation or abscess without bleeding (8) E. coli UTI Status: Acute Category: Medical Code(s): N39.0 - Urinary tract infection, site not specified; B96.20 - Unspecified Escherichia coli [E. coli] as the cause of diseases classified elsewhere The patient's infection will respond to the chosen ABx?: Yes Is the patient receiving the right drug, dose, and route?: Yes Could a more targeted ABx be ordered?: No (URINE CX + FOR E COLI. SENSITIVE TO ROCEPHIN. RECOMMEND CONTINUE CURRENT.)
--- NOTE | 2021-09-24 08:21 | HMH.ACPN2 ---
<Macie Reyes - Last Filed: 09/24/21 08:21> Internal Medicine - PN: Subj *Date: 09/24/21 *Time: 08:21 Interval history: Doing well. Remains on Vapotherm. O2 sats 92 to 98%. She denies shortness of breath. She is ambulated in the room with other activities. She denies dyspnea with exertion. She denies pain. She is eating without difficulty. She is voiding QS and bowels have moved. Exam Vital signs and Labs for Last 24 Hours: Temp Pulse Resp BP Pulse Ox 97.5 F L 88 16 120/74 95 09/24/21 08:00 09/24/21 08:00 09/24/21 08:00 09/24/21 08:00 09/24/21 08:00 Laboratory Results - last 24 hr 09/23/21 09:37: WBC 10.0 D, RBC 4.86, Hgb 14.3, Hct 41.6, MCV 85.6, MCH 29.4, MCHC 34.4, RDW 13.4, Plt Count 344 D, MPV 7.3 L, Neut % (Auto) 70.3, Lymph % (Auto) 22.3, [place] % (Auto) 5.9, Eos % (Auto) 0.9, Baso % (Auto) 0.6, Neut # (Auto) 7.0, Lymph # (Auto) 2.2, [place] # (Auto) 0.6, Eos # (Auto) 0.1, Baso # (Auto) 0.1 09/23/21 09:37: Sodium 139, Potassium 3.7, Chloride 105, Carbon Dioxide 25, Anion Gap 12.7, BUN 14 D, Creatinine 0.60, Estimated Creat Clear 67, Estimated GFR 99, Est GFR ( Amer) 120, Glucose 206 H, Calcium 9.2 09/24/21 06:52: Sodium 138, Potassium 4.3, Chloride 105, Carbon Dioxide 25, Anion Gap 12.3, BUN 15, Creatinine 0.60, Estimated Creat Clear 62, Estimated GFR 99, Est GFR ( Amer) 120, Glucose 129 H D, Calcium 8.9 I & O for Last 24 hours: Intake & Output 09/21/21 09/22/21 09/23/21 09/24/21 11:59 11:59 11:59 11:59 Intake Total 600 / 600 1860 / 1860 960 / 960 480 / 480 Output Total 800 / 800 1050 / 1050 3100 / 3100 1000 / 1000 Balance -200 / -200 810 / 810 -2140 / -2140 -520 / -520 Weight 152 lb 11.2 oz 178 lb 9.191 oz 179 lb 4.8 oz 164 lb 3.2 oz Microbiology Reports for the Last 24 Hours: Microbiology 09/21/21 09:45 Sputum - Expectorated Sputum Gram Stain - Final 09/21/21 09:45 Sputum - Expectorated Sputum Sputum Culture - Preliminary - Constitutional no acute distress Comments: Sitting up in bedside chair. Appears comfortable. - *Routine Respiratory Exam Present: CTA bilaterally (Anteriorly and posteriorly) - *Routine Cardiovascular Exam Present: RRR - *Routine Abdominal Exam Present: soft, normoactive bowel sounds. Absent: tenderness - *Routine Extremities Exam Present: BOBBY stockings. Absent: edema - *Routine Neurological Exam Present: alert, oriented X3 Assessment and Plan (1) COVID-19 virus infection Status: Acute Category: Medical Code(s): U07.1 - COVID-19 (2) Pneumonia Status: Acute Qualifiers: Pneumonia type: due to unspecified organism Laterality: bilateral Lung location: lower lobe of lung Qualified Code(s): J18.9 - Pneumonia, unspecified organism Category: Medical Code(s): J18.9 - Pneumonia, unspecified organism (3) Respiratory failure with hypoxia Status: Acute Qualifiers: Chronicity: acute Qualified Code(s): J96.01 - Acute respiratory failure with hypoxia Category: Medical Code(s): J96.91 - Respiratory failure, unspecified with hypoxia (4) COPD (chronic obstructive pulmonary disease) Status: Acute Category: Medical Code(s): J44.9 - Chronic obstructive pulmonary disease, unspecified (5) Anxiety Status: Acute Category: Medical Code(s): F41.9 - Anxiety disorder, unspecified (6) GERD (gastroesophageal reflux disease) Status: Acute Category: Medical Code(s): K21.9 - Gastro-esophageal reflux disease without esophagitis (7) Diverticulosis Status: Acute Category: Medical Code(s): K57.90 - Diverticulosis of intestine, part unspecified, without perforation or abscess without bleeding (8) E. coli UTI Status: Acute Category: Medical Code(s): N39.0 - Urinary tract infection, site not specified; B96.20 - Unspecified Escherichia coli [E. coli] as the cause of diseases classified elsewhere - Assessment and plan all Dx Assessment and Plan for all problems:: Wean
[2021-09-24 08:26] LABS: Hemoglobin A1C 6.2 % (4.0-6.0)
--- NOTE | 2021-09-24 09:54 | PC.NURSE ---
RESP CARE NOTE: Pt SPO2 at 93% on 30L/45% oxygen weaned to 30 L/40% FIO2. Will continue to monitor and wean appropriately.
--- NOTE | 2021-09-24 10:08 | HMH.PULMPN ---
Internal Medicine - PN: Subj *Date: 09/24/21 *Time: 12:11 Interval history: No acute respiratory vents overnight. Admits continued improvement in symptoms. Exam - Constitutional Constitutional:: Present: no acute distress, comfortable - HENMT Exam HENMT: Present: normocephalic - Eye Exam Eyes:: Present: normal appearance both eyes and related structures - Neck Exam Neck:: Present: normal visual inspection - Respiratory Exam Respiratory:: Present: able to speak in complete sentences, no respiratory distress. Absent: wheezing - Cardiovascular Exam Cardiac:: Present: S1, S2 - GI Exam GI:: Present: soft - Skin Exam Skin: Present: warm, no rash - Neurological Exam Neurological: Present: alert, awake - Extremities Exam Extremities: Present: no cyanosis, no clubbing, no edema Assessment and Plan (1) COVID-19 virus infection Status: Acute Category: Medical Code(s): U07.1 - COVID-19 (2) Pneumonia Status: Acute Qualifiers: Pneumonia type: due to unspecified organism Laterality: bilateral Lung location: lower lobe of lung Qualified Code(s): J18.9 - Pneumonia, unspecified organism Category: Medical Code(s): J18.9 - Pneumonia, unspecified organism (3) Respiratory failure with hypoxia Status: Acute Qualifiers: Chronicity: acute Qualified Code(s): J96.01 - Acute respiratory failure with hypoxia Category: Medical Code(s): J96.91 - Respiratory failure, unspecified with hypoxia (4) COPD (chronic obstructive pulmonary disease) Status: Acute Category: Medical Code(s): J44.9 - Chronic obstructive pulmonary disease, unspecified (5) Anxiety Status: Acute Category: Medical Code(s): F41.9 - Anxiety disorder, unspecified (6) GERD (gastroesophageal reflux disease) Status: Acute Category: Medical Code(s): K21.9 - Gastro-esophageal reflux disease without esophagitis (7) Diverticulosis Status: Acute Category: Medical Code(s): K57.90 - Diverticulosis of intestine, part unspecified, without perforation or abscess without bleeding (8) E. coli UTI Status: Acute Category: Medical Code(s): N39.0 - Urinary tract infection, site not specified; B96.20 - Unspecified Escherichia coli [E. coli] as the cause of diseases classified elsewhere - Assessment and plan all Dx Assessment and Plan for all problems:: #Acute hypoxic respiratory failure: # COVID-19 pneumonia: 71-year-old female prior smoker greater than [id number] smoking history last smoked 6 years ago Not vaccinated for COVID-19. Tested positive home testing on 09/08/2021, gradually worsening respiratory symptoms since then admits cough with worsening productive phlegm along with intermittent mild hemoptysis episodes. COVID-19 PCR positive, No evidence of leukocytosis. VBG on admission 7.42, rvB864.8 and 34.7 CTA on admission no evidence of pulmonary embolism bilateral diffuse emphysematous changes along with groundglass opacities. No dense consolidation noted. Tiny right pleural effusion. Patient on admission appeared to be in severe respiratory distress. Bibasilar crackles and bilateral 1+ lower extremity edema. No wheezing on auscultation. On high flow nasal cannula 35 L 100% saturating 95%. CRP elevated at 26.6. Interval update: No acute respiratory vents overnight. Patient admits continued improvement in her symptoms. Improving oxygen requirements. Plan: -Weaned to nasal cannula 6 L with O2 saturation goal of 90% and above. Continue to wean as tolerated. -Continue Advair 500 twice daily scheduled along with Combivent every 6 hours/DuoNebs every 6 hours on as-needed basis. -Dexamethasone 6 mg IV daily until discharge, can be changed to prednisone 40 mg daily with a 14-day taper upon discharge. -Continue ceftriaxone azithromycin x 5 days -Recommend chemical DVT prophylaxis and GI ulcer prophylaxis #Thank you for involving pulmonary in this patient care. We will continue to follow.
--- NOTE | 2021-09-24 11:00 | PC.NURSE ---
Rounded on this pt, cleaned and straightened room. Pt up in chair watching tv with no needs voiced.
--- NOTE | 2021-09-24 13:32 | PC.NURSE ---
rounded on patient. main concerns is she hasn't ate well because of the food that has been sent up. patient states she is gluten free so this was added to her diet order. patient request taken for dinner and called down to dietary with this; and menu for tomorrow given to patient. she was sitting up in chair at this time. lunch tray from today thrown away per patient request. offered more food but patient states daughter is bringing her food. no other questions or concerns. encouraged her to ring out as needed
--- NOTE | 2021-09-24 17:37 | PC.NURSE ---
Pt is alert and oriented x4. Lungs are clear but diminished. She has been weaned to 6L NC and tolerating well. She has ambulated in her room independently. She's denied any complaints. Appetite has been good. She is currently up to the chair, call light is within reach.
[2021-09-25] VITALS: BP 123/79; PULSE 90; RESP 18; TEMP 36.6; O2SAT 91
[2021-09-25 04:00] VITALS: BP 123/62; PULSE 80; RESP 18; TEMP 36.7; O2SAT 89
[2021-09-25 04:06] VITALS: BMI 27.0
--- NOTE | 2021-09-25 06:42 | PC.NURSE ---
Pt tolerating 6L nc well with sats >90%. Attempted to titrate pt down to 5 L nc but pt sat dropped to mid 80s. Lung sounds diminished. No complaints voiced to staff. Call light within reach.
[2021-09-25 06:56] VITALS: O2SAT 97
[2021-09-25 08:00] VITALS: BP 117/71; PULSE 74; RESP 20; TEMP 36.3; O2SAT 95; O2SAT 96
--- NOTE | 2021-09-25 08:45 | HMH.ACPN2 ---
<Meri Reyna - Last Filed: 09/25/21 08:45> Internal Medicine - PN: Subj *Date: 09/25/21 *Time: 08:45 Interval history: Patient states she is feeling well this morning. She did sleep last night but had some issues with restless legs. She has been up this morning and had her breakfast and is getting ready to drink some V8 juice. She denies any pain or shortness of breath. Exam Vital signs and Labs for Last 24 Hours: Temp Pulse Resp BP Pulse Ox 97.4 F L 74 20 117/71 96 09/25/21 08:00 09/25/21 08:00 09/25/21 08:00 09/25/21 08:00 09/25/21 08:00 I & O for Last 24 hours: Intake & Output 09/22/21 09/23/21 09/24/21 09/25/21 11:59 11:59 11:59 11:59 Intake Total 1860 / 1860 960 / 960 720 / 720 1400 / 1400 Output Total 1050 / 1050 3100 / 3100 1999 / 1999 Balance 810 / 810 -2140 / -2140 -1280 / -1280 1400 / 1400 Weight 178 lb 9.191 oz 179 lb 4.8 oz 164 lb 3.2 oz 168 lb 5 oz Microbiology Reports for the Last 24 Hours: Microbiology 09/21/21 09:45 Sputum - Expectorated Sputum Gram Stain - Final 09/21/21 09:45 Sputum - Expectorated Sputum Sputum Culture - Preliminary - Constitutional no acute distress - *Routine Respiratory Exam Present: decreased breath sounds - *Routine Cardiovascular Exam Present: RRR - *Routine Abdominal Exam Present: soft, normoactive bowel sounds. Absent: tenderness - *Routine Extremities Exam Absent: cyanosis, clubbing, edema - *Routine Skin Exam Present: warm. Absent: rash - *Routine Neurological Exam Present: alert, oriented X3 Assessment and Plan (1) COVID-19 virus infection Status: Acute Category: Medical Code(s): U07.1 - COVID-19 (2) Pneumonia Status: Acute Qualifiers: Pneumonia type: due to unspecified organism Laterality: bilateral Lung location: lower lobe of lung Qualified Code(s): J18.9 - Pneumonia, unspecified organism Category: Medical Code(s): J18.9 - Pneumonia, unspecified organism (3) Respiratory failure with hypoxia Status: Acute Qualifiers: Chronicity: acute Qualified Code(s): J96.01 - Acute respiratory failure with hypoxia Category: Medical Code(s): J96.91 - Respiratory failure, unspecified with hypoxia (4) COPD (chronic obstructive pulmonary disease) Status: Acute Category: Medical Code(s): J44.9 - Chronic obstructive pulmonary disease, unspecified (5) Anxiety Status: Acute Category: Medical Code(s): F41.9 - Anxiety disorder, unspecified (6) GERD (gastroesophageal reflux disease) Status: Acute Category: Medical Code(s): K21.9 - Gastro-esophageal reflux disease without esophagitis (7) Diverticulosis Status: Acute Category: Medical Code(s): K57.90 - Diverticulosis of intestine, part unspecified, without perforation or abscess without bleeding (8) E. coli UTI Status: Acute Category: Medical Code(s): N39.0 - Urinary tract infection, site not specified; B96.20 - Unspecified Escherichia coli [E. coli] as the cause of diseases classified elsewhere - Assessment and plan all Dx Assessment and Plan for all problems:: Patient improving. Pulmonology to follow. <Imtiaz Branch - Last Filed: 09/25/21 22:25> Internal Medicine - PN: Subj *Date: 09/25/21 *Time: 10:34 Exam Vital signs and Labs for Last 24 Hours: Temp Pulse Resp BP Pulse Ox 97.4 F L 74 20 117/71 95 09/25/21 08:00 09/25/21 08:00 09/25/21 08:00 09/25/21 08:00 09/25/21 08:00 I & O for Last 24 hours: Intake & Output 09/23/21 09/24/21 09/25/21 09/26/21 11:59 11:59 11:59 11:59 Intake Total 960 / 960 720 / 720 1760 / 1760 Output Total 3100 / 3100 1999 / 1999 1000 / 1000 Balance -2140 / -2140 -1280 / -1280 760 / 760 Weight 179 lb 4.8 oz 164 lb 3.2 oz 168 lb 5 oz Microbiology Reports for the Last 24 Hours: Microbiology 09/21/21 09:45 Sputum - Expectorated Sputum Gram Stain - Final 09/21/21 09:45 Sputum - Expectorated Sputum Spu
--- NOTE | 2021-09-25 09:31 | HMH.PULMPN ---
Internal Medicine - PN: Subj *Date: 09/25/21 *Time: 10:46 Interval history: No acute respiratory vents overnight. Patient admits continued improvement in her symptoms. Exam - Constitutional Constitutional:: Present: no acute distress, comfortable - HENMT Exam HENMT: Present: normocephalic - Eye Exam Eyes:: Present: normal appearance both eyes and related structures - Neck Exam Neck:: Present: normal visual inspection - Respiratory Exam Respiratory:: Present: able to speak in complete sentences, no respiratory distress. Absent: wheezing - Cardiovascular Exam Cardiac:: Present: S1, S2 - GI Exam GI:: Present: soft - Skin Exam Skin: Present: warm, no rash - Neurological Exam Neurological: Present: alert, awake - Extremities Exam Extremities: Present: no cyanosis, no clubbing Assessment and Plan (1) COVID-19 virus infection Status: Acute Category: Medical Code(s): U07.1 - COVID-19 (2) Pneumonia Status: Acute Qualifiers: Pneumonia type: due to unspecified organism Laterality: bilateral Lung location: lower lobe of lung Qualified Code(s): J18.9 - Pneumonia, unspecified organism Category: Medical Code(s): J18.9 - Pneumonia, unspecified organism (3) Respiratory failure with hypoxia Status: Acute Qualifiers: Chronicity: acute Qualified Code(s): J96.01 - Acute respiratory failure with hypoxia Category: Medical Code(s): J96.91 - Respiratory failure, unspecified with hypoxia (4) COPD (chronic obstructive pulmonary disease) Status: Acute Category: Medical Code(s): J44.9 - Chronic obstructive pulmonary disease, unspecified (5) Anxiety Status: Acute Category: Medical Code(s): F41.9 - Anxiety disorder, unspecified (6) GERD (gastroesophageal reflux disease) Status: Acute Category: Medical Code(s): K21.9 - Gastro-esophageal reflux disease without esophagitis (7) Diverticulosis Status: Acute Category: Medical Code(s): K57.90 - Diverticulosis of intestine, part unspecified, without perforation or abscess without bleeding (8) E. coli UTI Status: Acute Category: Medical Code(s): N39.0 - Urinary tract infection, site not specified; B96.20 - Unspecified Escherichia coli [E. coli] as the cause of diseases classified elsewhere - Assessment and plan all Dx Assessment and Plan for all problems:: #Acute hypoxic respiratory failure: # COVID-19 pneumonia: 71-year-old female prior smoker greater than [id number] smoking history last smoked 6 years ago Not vaccinated for COVID-19. Tested positive home testing on 09/08/2021, gradually worsening respiratory symptoms since then admits cough with worsening productive phlegm along with intermittent mild hemoptysis episodes. COVID-19 PCR positive, No evidence of leukocytosis. VBG on admission 7.42, isE098.8 and 34.7 CTA on admission no evidence of pulmonary embolism bilateral diffuse emphysematous changes along with groundglass opacities. No dense consolidation noted. Tiny right pleural effusion. Patient on admission appeared to be in severe respiratory distress. Bibasilar crackles and bilateral 1+ lower extremity edema. No wheezing on auscultation. On high flow nasal cannula 35 L 100% saturating 95%. CRP elevated at 26.6. Completed 5 days of antibiotics Interval update: No acute respiratory events overnight. Patient admits continued improvement in her symptoms. Improving oxygen requirements. Plan: -Continue nasal cannula oxygen supplementation,weaned to 4 L nasal cannula with saturations maintained at 90% and above. -Continue Advair 500 twice daily scheduled along with Combivent every 6 hours/DuoNebs every 6 hours on as-needed basis. Can be discharged on Advair 500 twice along with Combivent every 6 hours as needed -Dexamethasone 6 mg IV daily until discharge, can be changed to prednisone 40 mg daily with a 14-day taper upon discharge. -Recommend chemical DVT prophylaxis and GI ulcer prophylaxis #Th
--- NOTE | 2021-09-25 11:39 | CARE MANAGER ---
Patient's room air saturation 85% at rest. Patient placed back on her 4.5L per NC and saturation raised to 95%.
--- NOTE | 2021-09-25 11:56 | PC.NURSE ---
Room air is 88%
--- NOTE | 2021-09-25 12:40 | PC.NURSE ---
Spoke with daughter she will be here within the hour.
--- NOTE | 2021-09-25 13:06 | PC.NURSE ---
pt's medication is placed in pts bag
--- NOTE | 2021-09-26 12:51 | CARE MANAGER ---
Spoke with patient daughter, Susy for post-discharge phone interview. She states that patient is doing well and has no issues at this time.
--- NOTE | 2021-09-27 11:46 | HMH.DCSUM ---
General - General Admission date:: 09/20/21 <Imtiaz Branch - 10/09/21 22:46> 09/20/21 <Meri Reyna - 09/27/21 11:52> Discharge date: 09/25/21 <MaribellMeri - 09/27/21 11:52> HPI HPI: Ms. Wing is a 71-year-old female presenting to the emergency department last evening with cough and shortness of breath. She was diagnosed with COVID-19 2 weeks ago. Since then she has felt generally unwell, fatigued, rundown. She has had a cough that is constant and productive. Initially it was productive of sputum an in the last 2 days she has been coughing up chunks of dark red blood. She feels like she is breathing fast, unable to get enough air. Symptoms are worse when walking or exerting. Improved with rest. No chest pain, abdominal pain, nausea, vomiting. History of tobacco use disorder, quit about 6 years ago. She has a COPD, does not use inhalers or home oxygen. No recent antibiotic or steroid use. No leg swelling. No history of DVT or PE. She evaluated the emergency room. O2 sats on arrival were 88% on room air. She was initially started on 2 L of nasal oxygen and titrated to 4 L. CBC showed a normal white count. Venous blood gas showed no acidosis or CO2 retention. CT scan of the chest showed bilateral opacities and small pleural effusions. No pulmonary embolus. She was subsequent mated for further evaluation and treatment. Overnight she continued to be mildly hypoxic with O2 sats down to 87%. She was switched from high flow O2 to Vapotherm and O2 sats are now running in the mid 90s. She however is very anxious and quite adamant that she does not want to be placed on a mask or a ventilator. She states if I am going to I just want to go home and be with my family . <Meri Reyna - 09/27/21 11:52> Hospital Course Hospital Course: The patient was admitted with COVID infection and a probable secondary bacterial pneumonia. She was started on Vapotherm and was saturating in the mid 90s. Some of her dyspnea was likely related to her anxiety. She did sign a form stating she did not wish to be placed on BiPAP or be intubated. Her anxiety did improve and she was able to rest. She had some hemoptysis and right-sided pleuritic chest pain. Pulmonology was consulted. He wanted to wean her oxygen as tolerated and initiated her on Advair 500 mg twice daily along with Combivent. He also started her on dexamethasone and gave her a one-time dose of 40 mg of IV Lasix. She had a repeat chest x-ray which showed stable increased interstitial markings with right basilar opacity. She did begin feeling better. She had no further hemoptysis and her appetite improved. Her urine culture grew E. coli sensitive to Rocephin. By 09/25/2021, she was feeling much better and had been weaned to 4 L of nasal oxygen. Her sputum grew normal respiratory won. It was felt she could be discharged home on oxygen and would need to continue her Advair and Combivent. She was also discharged on 40 mg of prednisone daily with a 14-day taper. <Meri Reyna - 09/27/21 11:52> Objective Vital signs: Temp Pulse Resp BP Pulse Ox 97.4 F L 74 20 117/71 95 09/25/21 08:00 09/25/21 08:00 09/25/21 08:00 09/25/21 08:00 09/25/21 08:00 <SarinaImtiaz Mike - 10/09/21 22:46> Temp Pulse Resp BP Pulse Ox 97.4 F L 74 20 117/71 95 09/25/21 08:00 09/25/21 08:00 09/25/21 08:00 09/25/21 08:00 09/25/21 08:00 <Meri Reyna - 09/27/21 11:52> Narrative: - Constitutional no acute distress - *Routine Respiratory Exam Present: decreased breath sounds - *Routine Cardiovascular Exam Present: RRR - *Routine Abdominal Exam Present: soft, normoactive bowel sounds. Absent: tenderness - *Routine Extremities Exam Absent: cyanosis, clubbing, edema - *Routine Skin Exam Present: warm. Absent: rash - *Routine Neurological Exam Present: alert, oriented X3 <Meri Reyna - 09/27/21 11:52>
== END 2021-09-25 13:36 | disposition home or self-care (01) | DRG 177 ==
LOC: ER 15:29 → 2ND 19:46
PROVIDERS: Internal Medicine Pulmonary Disease; Admitting Provider Family Medicine; Emergency Provider Emergency Medicine; Visit Provider Family Medicine
DX: U07.1 COVID-19 (principal); J18.1 Lobar pneumonia, unspecified organism; J96.01 Acute respiratory failure with hypoxia; J44.0 Chronic obstructive pulmonary disease with (acute) lower respiratory infection; N39.0 Urinary tract infection, site not specified; B96.20 Unspecified Escherichia coli [E. coli] as the cause of diseases classified elsewhere; F41.9 Anxiety disorder, unspecified; Z87.891 Personal history of nicotine dependence
CPT/HCPCS: 36415; 71045; 71275; 80048; 80053; 81001; 82803; 83036; 83880; 84484; 85025; 86140; 87070; 87086; 87088; 87186; 87205; 93005; 94640; 94760; 94761; 99291; C9803; J0456; J0696; Q9967; U0003; U0005

== ENCOUNTER 2021-10-13 07:03 | Emergency (ER) | payer OTHER, SELFPAY ==
[2021-10-13] VITALS (12 sets, daily range): BP systolic 104–130; BP diastolic 66–79; PULSE 85–100; RESP 18–20; TEMP 36.7; O2SAT 84–99; BMI 34.8
--- NOTE | 2021-10-13 07:11 | ECG_ITS ---
APPROVED REPORT Exam: Resting ECG HR:97 bpm ECG Measurements Heart Rate 97 AXES IN 141 P 58 QRSd 99 QRS 39 QT 341 T 78 QTc 396 Conclusion SINUS RHYTHM MINIMAL ST DEPRESSION [0.025+ mV ST DEPRESSION] BORDERLINE ECG UNCONFIRMED REPORT Electronically signed by : Jerry Ruby MD 10/13/2021 14:19:27
--- NOTE | 2021-10-13 07:29 | XR_ITS ---
FINAL REPORT CLINICAL HISTORY: SOA COMPARISON: 09/22/2021 FINDINGS: A single view of the chest was obtained. The heart is normal in size. The mediastinum is unremarkable. There are stable interstitial markings which may represent fibrosis or scarring. There is no pleural effusion. There is no pneumothorax. There is no acute osseous abnormality. IMPRESSION: Stable interstitial markings may represent fibrosis or scarring. Reviewed, Interpreted and Dictated by Mp Mendez III, MD Transcribed by Whitney Castillo Authenticated and [facility]
[2021-10-13 07:39] LABS: Basophils # 0.3 K/mm3 (0-0.2); Eosinophils # 0.3 K/mm3 (0.0-0.4); Eosinophils % 3.4 % (0.1-12.0); Hematocrit 46.2 % (37.0-47.0); Hemoglobin 14.7 g/dL (12.2-16.2); Lymphocytes # 2.4 K/mm3 (0.7-4.5); Lymphocytes % 26.3 % (10-50); Mean Corpuscular HGB Conc 31.9 g/dL (31.8-35.4); Mean Corpuscular Hemoglobin 29.7 pg (27.0-31.2); Mean Platelet Volume 8.1 fl (7.4-10.4); Monocytes # 0.4 K/mm3 (0.1-1.0); Monocytes % 4.1 % (1.7-9.3); Neutrophils # 5.8 K/mm3 (1.8-7.8); Neutrophils % 63.2 % (37.0-80.0); Platelet Count 172 K/mm3 (142-424); Red Blood Count 4.96 M/mm3 (4.20-5.40); Red Cell Distribution Width 15.1 % (11.5-17.5); White Blood Count 9.2 K/mm3 (4.8-10.8)
[2021-10-13 07:43] LABS: Alanine Aminotransferase 70 U/L (12-78); Albumin Level 4.1 g/dl (3.5-5.0); Albumin/Globulin Ratio 1.2 (1.1-1.8); Alkaline Phosphatase 118 U/L (38-126); Aspartate Amino Transferase 42 U/L (14-36); Bilirubin,Total 0.6 mg/dl (0.2-1.3); Blood Urea Nitrogen 17 mg/dl (7-17); Carbon Dioxide 27 mmol/L (22.0-30.0); Chloride 108 mmol/L (98-107); Creatinine Clearance Estimated 81 mL/min (50-200); Estimated Glomerular Filt Rate 99 ml/min (>60); GFR (African American) 120 ML/MIN (>60); Globulin 3.5 g/dL (1.3-3.2); Glucose 105 mg/dl (74-100); Potassium 4.2 mmoL/L (3.5-5.1); Total Protein,Serum 7.6 g/dl (6.3-8.2)
--- NOTE | 2021-10-13 07:44 | PC.NURSE ---
RADIOLOGY NOTIFIED OF CXR
[2021-10-13 07:47] LABS: Anion Gap 10.2 mEq/L (5-15); Sodium 141 mmol/L (136-145)
--- NOTE | 2021-10-13 07:50 | PC.NURSE ---
radiology at bedside
--- NOTE | 2021-10-13 07:51 | PC.NURSE ---
XR AT BEDSIDE
--- NOTE | 2021-10-13 07:52 | PC.NURSE ---
radiollogy finished at bedside
--- NOTE | 2021-10-13 07:55 | PC.NURSE ---
ROUNDED ON PT AT THIS TIME. UPDATED ON POC. WARM BLANKET PROVIDED. NO FURTHER NEEDS AT THIS TIME
--- NOTE | 2021-10-13 08:06 | PC.NURSE ---
ED MD AT BEDSIDE FOR EVALUATION
[2021-10-13 08:23] LABS: INR 0.86 (0.9-1.1); Prothrombin Time 9.8 seconds (10.1-12.5)
--- NOTE | 2021-10-13 08:27 | PC.NURSE ---
0862 ROUNDED ON PT, FAMILY AT BEDSIDE. NO NEEDS AT THIS TIME
[2021-10-13 08:33] LABS: NT Pro Brain Natriuretic Pep. 50.3 pg/mL (0-125)
[2021-10-13 08:37] LABS: Troponin I < 0.01 ng/ml (0.00-0.034)
--- NOTE | 2021-10-13 09:41 | HMH.EDCP ---
ED Disposition Clinical Impression: Pleuritic chest pain Disposition: Home, Self-Care Condition on Discharge: Good Instructions: DI for Atypical Chest Pain Referrals: Nehemiah Matute MD [Primary Care Provider] - - Critical Care Critical Care Time: No Attestation: On 10/13/21, the high probability of a clinically significant, sudden or life threatening deterioration of the following system(s) required my full and direct attention, intervention and personal management. The time I documented below is in addition to time spent performing reported procedures but includes the following listed in this critical care notation. Medical Decision Making - Medical Records Medical records reviewed: Yes: I reviewed the patient's medical records. - Terence Inquiry Pt receiving controlled substance: No Vital Signs: 10/13/21 07:04 10/13/21 07:48 10/13/21 08:03 Temperature 98.1 F Temperature Source Oral Pulse Rate 89 92 H Pulse Rate [Radial] 92 H Respiratory Rate 20 18 Blood Pressure 116/71 120/74 Blood Pressure [Right Arm] 116/66 Blood Pressure Mean 80 87 Blood Pressure Mean [Right Arm] 82 Blood Pressure Source [Right Arm] Automatic Cuff Blood Pressure Position [Right Arm] Sitting 02 Sat by Pulse Oximetry 99 96 96 Oxygen Delivery Method Nasal Cannula Room Air Oxygen Flow Rate (LPM) 4.5 10/13/21 08:18 10/13/21 08:33 10/13/21 08:48 Temperature Temperature Source Pulse Rate 86 87 85 Pulse Rate [Radial] Respiratory Rate 18 18 18 Blood Pressure 104/67 L 109/66 L 119/66 Blood Pressure [Right Arm] Blood Pressure Mean 81 86 78 Blood Pressure Mean [Right Arm] Blood Pressure Source [Right Arm] Blood Pressure Position [Right Arm] 02 Sat by Pulse Oximetry 96 96 96 Oxygen Delivery Method Oxygen Flow Rate (LPM) 10/13/21 09:03 Temperature Temperature Source Pulse Rate 92 H Pulse Rate [Radial] Respiratory Rate 18 Blood Pressure 109/73 L Blood Pressure [Right Arm] Blood Pressure Mean 81 Blood Pressure Mean [Right Arm] Blood Pressure Source [Right Arm] Blood Pressure Position [Right Arm] 02 Sat by Pulse Oximetry 97 Oxygen Delivery Method Oxygen Flow Rate (LPM) - Lab Data Lab Results 10/13/21 07:20: WBC 9.2, RBC 4.96, Hgb 14.7, Hct 46.2, MCV 93.0, MCH 29.7, MCHC 31.9, RDW 15.1, Plt Count 172, MPV 8.1, Neut % (Auto) 63.2, Lymph % (Auto) 26.3, Mccormick % (Auto) 4.1, Eos % (Auto) 3.4, Baso % (Auto) 3.0 H, Neut # (Auto) 5.8, Lymph # (Auto) 2.4, Mccormick # (Auto) 0.4, Eos # (Auto) 0.3, Baso # (Auto) 0.3 H 10/13/21 07:20: Sodium 141, Potassium 4.2, Chloride 108 H, Carbon Dioxide 27, Anion Gap 10.2, BUN 17, Creatinine 0.60, Estimated Creat Clear 81, Estimated GFR 99, Est GFR ( Amer) 120, Glucose 105 H, Calcium 9.0, Total Bilirubin 0.6, AST 42 H, ALT 70, Alkaline Phosphatase 118, Total Protein 7.6, Albumin 4.1, Globulin 3.5 H, Albumin/Globulin Ratio 1.2 10/13/21 07:20: PT 9.8 L, INR 0.86 L, APTT 23.0 10/13/21 07:20: Troponin I < 0.01, NT-Pro-B Natriuret Pep 50.3 Result diagrams: 10/13/21 07:20 10/13/21 07:20 Orders (Tests/Meds): ORDERS Category Date Time Status Troponin I Q3H Lab 10/13/21 11:15 Ordered Troponin I Q3H Lab 10/13/21 14:15 Ordered - Radiology Data #1 Image(s): Chest Image Reviewed: Yes I reviewed the patient's radiology results, Yes I reviewed the patient's radiology image, Yes I have reviewed radiologist's interpretation IMPRESSION: Stable interstitial markings may represent fibrosis or scarring. - ECG Data Tracing #1 I reviewed this ECG and interpreted as documented below: No ventricular rate at 97 bpm, OH interval 141 ms, normal QTC. Sinus rhythm with nonspecific ST changes. ECG initial impression date: 10/13/21 ECG initial impression time: 07:11 - Reevaluation(s) Time: 10:02 Reevaluation #1: On reevaluation, patient is feeling better. Not having any pain at this time. She is saturating well on her normal
--- NOTE | 2021-10-13 09:49 | PC.NURSE ---
rounded on patient and asked if they needed anything. patient stated that she'd like to have something to drink. checked with er doctor and said patient could have some water. water was delivered to patient and nothing else at this time was needed.
--- NOTE | 2021-10-13 09:56 | PC.NURSE ---
AT GOING OVER RESULTS
== END 2021-10-13 10:18 | disposition home or self-care (01) ==
PROVIDERS: Emergency Medicine; Emergency Provider Emergency Medicine; PCP Emergency Medicine
DX: R07.89 Other chest pain (principal)
CPT/HCPCS: 71045; 80053; 83880; 84484; 85025; 85610; 85730; 93005; 99283

== ENCOUNTER → 2021-12-05 12:35 | Outpatient (CLI) | payer OTHER, SELFPAY | PROVIDERS: PCP Emergency Medicine; Visit Provider Internal Medicine Pulmonary Disease | DX: R06.09 Other forms of dyspnea (principal) | CPT/HCPCS: 94060; 94618; 94726; 94729; 94762 ==

== ENCOUNTER → 2021-12-18 08:24 | Outpatient (CLI) | payer OTHER, SELFPAY | PROVIDERS: PCP Emergency Medicine; Visit Provider Internal Medicine Pulmonary Disease | DX: R06.02 Shortness of breath (principal) | CPT/HCPCS: 93306 ==

== ENCOUNTER → 2022-01-01 06:11 | Outpatient (CLI) | payer OTHER, SELFPAY ==
--- NOTE | 2022-01-01 06:12 | CA_ITS ---
APPROVED REPORT Exam: Pharmacologic Technologist: Barb Domingo, Ht: 5 ft 6 in Wt: 224 lbs BSA: 2.10 m2 HR: 77 bpm BP: 142/78 mmHg Rhythm: NSR, PAC, ST abns inferiorly and laterally Medical History Medications: Duoneb,,,,, Albuterol,,,,, ADVAIR,,,,, Protonix,,,,, Cardiac Risk Factors: FHX of CAD, Smoking Stress Test Details Test: LEXISCAN HR Resting HR: 85 bpm Max Heart Rate (APMHR): 150.782658 bpm Max HR Achieved: 101 bpm Target HR (85% APMHR): 127.683283 bpm % of APMHR: 67.33 Recovery HR: 92 bpm BP Resting BP: 142/78 mmHg Max BP: 160/80 mmHg Recovery BP: 140.0/74.0 mmHg ECG Resting ECG: NSR, PAC, ST abns inferiorly and laterally Clinical Exercise duration: 04:00 min Highest Stage Achieved: Exercise capacity: 1.0 METs Stress ECG Conclusion During lexiscan pt experinced mild, brief SOA. No CP noted. No arrhythmias noted. No significant ST changes. Non diagnostic lexiscan stress. Myoview images reported separately. Test Summary REST . . . . . . . Sitting REST 06:10 . . 85 . 142/ 78 . . Stage 1 01:00 . . 93 . . . . Stage 2 01:00 . . 93 . 159/ 86 . . Stage 3 01:00 . . 91 . 160/ 80 . . Stage 4 01:00 . . 87 . 150/ 82 . Stop exercise at 04:00 RECOVERY 01:00 . . 94 . . . . RECOVERY 02:00 . . 88 . 140/ 76 . . RECOVERY 03:00 . . 83 . 128/ 72 . . RECOVERY 04:00 . . 84 . 148/ 80 . . RECOVERY 04:08 . . 86 . 148/ 80 . . Electronically signed by : Jj Rowland MD 01/02/2022 10:16:54
--- NOTE | 2022-01-01 06:12 | NM_ITS ---
APPROVED REPORT Exam: Nuclear Stress Test Indication: short of breath Patient Location: Outpatient Stress Tech: Barb Domingo PR Tech:QUAN Hernandez RT(R)(N) Ht: 5 ft 6 in Wt: 224 lbs Bra Size: c HR: 85 bpm BP: 142/78 mmHg BSA: 2.10 m2 TID: 1.12 BMI: 36.1 History: short of breath Procedure: Patient received a 0.4 mg of intravenous Lexiscan, resting heart rate 85 bpm, resting blood pressure 142/78 mmHg, with Lexiscan maximum heart rate achived was 101 bpm which is Less than 85 % of the maximum predicted heart rate and blood pressure was 160/80 mmHg. With Lexiscan, patient denied any complaint of chest pain. patient was unable to lay on her belly for prone images. Electrocardiogram Resting electrocardiogram shows sinus rhythm nonspecific ST-T changes, with Lexiscan there is less than 1.[address] segment depression noted from the baseline EKG. The EKG portion of the Lexiscan is nondiagnostic. Cardiac Stress and Resting SPECT Images: Cardiac Stress and Resting SPECT images were obtained using technetium 99m Myoview 29.9 mCi stress and 10.48 mCi at rest. Gated SPECT for analysis of segmental wall motion and calculation of the ejection fraction also done. Cardiac stress and rest respectively show uniform myocardial activity without segmental perfusion abnormality, computer derived ejection fraction is 59% with no regional wall motion abnormality, right ventricle is mildly enlarged with normal contractility. Conclusion: 1. The EKG portion of the Lexiscan is nondiagnostic. 2. No scintigraphic evidence of reversible ischemia seen, computer derived ejection fraction is 59% with no regional wall motion abnormality, right ventricle is mildly enlarged with normal contractility. 3. Normal Lexiscan Myoview study. Electronically signed by : Jj Rowland MD 01/02/2022 10:19:08
[2022-01-01 10:21] LABS: Hemoglobin A1C 5.8 % (4.0-6.0)
[2022-01-01 10:33] LABS: Anion Gap 15.2 mEq/L (5-15); Blood Urea Nitrogen 14 mg/dl (7-17); Carbon Dioxide 26 mmol/L (22.0-30.0); Chloride 106 mmol/L (98-107); Estimated Glomerular Filt Rate 83 ml/min (>60); GFR (African American) 100 ML/MIN (>60); Glucose 80 mg/dl (74-100); Potassium 4.2 mmoL/L (3.5-5.1); Sodium 143 mmol/L (136-145)
[2022-01-01 11:01] LABS: Free T4 (Free Thyroxine) 0.97 ng/dl (0.78-2.19)
[2022-01-01 11:04] LABS: Thyroid Stimulating Hormone 2.76 uIU/mL (0.465-4.68)
== END ==
PROVIDERS: PCP Emergency Medicine; Visit Provider Physician Assistant
DX: I25.10 Atherosclerotic heart disease of native coronary artery without angina pectoris (principal); R06.00 Dyspnea, unspecified; I25.84 Coronary atherosclerosis due to calcified coronary lesion; E78.5 Hyperlipidemia, unspecified; J44.9 Chronic obstructive pulmonary disease, unspecified; J98.4 Other disorders of lung; K21.9 Gastro-esophageal reflux disease without esophagitis; R94.31 Abnormal electrocardiogram [ECG] [EKG]; E66.9 Obesity, unspecified; Z68.36 Body mass index [BMI] 36.0-36.9, adult
CPT/HCPCS: 36415; 78452; 80048; 83036; 84439; 84443; 93017; A9502; J2785

== ENCOUNTER → 2022-01-21 09:30 | Outpatient (CLI) | payer OTHER, SELFPAY ==
[2022-01-21 13:42] LABS: Chol/HDL Ratio 5.7 (1-3.5); Cholesterol 270 mg/dl (140-200); HDL Cholesterol 47 mg/dl (40-60); Triglycerides 176 mg/dl (30-150); VLDL Cholesterol 35 mg/dL (0-40)
[2022-01-21 13:53] LABS: Direct LDL Cholesterol 167.82 mg/dL (100-129)
== END ==
PROVIDERS: PCP Emergency Medicine; Visit Provider Emergency Medicine
DX: R10.2 Pelvic and perineal pain (principal); E78.5 Hyperlipidemia, unspecified; B96.29 Other Escherichia coli [E. coli] as the cause of diseases classified elsewhere
CPT/HCPCS: 80061; 87086; 87088; 87186

== ENCOUNTER → 2022-09-04 14:42 | Outpatient (CLI) | payer OTHER, SELFPAY ==
[2022-09-04 15:40] VITALS: PULSE 80; PULSE 81
== END ==
PROVIDERS: PCP Emergency Medicine; Visit Provider Internal Medicine Pulmonary Disease
DX: R06.02 Shortness of breath (principal)
CPT/HCPCS: 94060; 94618; 94640; 94727; 94729

== ENCOUNTER → 2022-09-29 12:39 | Outpatient (CLI) | payer OTHER, SELFPAY ==
[2022-09-29 13:00] LABS: Basophils # 0.1 K/mm3 (0-0.2); Basophils % 0.9 % (0.1-2.0); Eosinophils # 0.3 K/mm3 (0.0-0.4); Eosinophils % 4.3 % (0.1-12.0); Hematocrit 47.9 % (37.0-47.0); Hemoglobin 15.1 g/dL (12.2-16.2); Lymphocytes # 2.8 K/mm3 (0.7-4.5); Lymphocytes % 43.8 % (10-50); Mean Corpuscular HGB Conc 31.5 g/dL (31.8-35.4); Mean Corpuscular Hemoglobin 28.2 pg (27.0-31.2); Mean Corpuscular Volume 89.5 fl (81-99); Monocytes # 0.4 K/mm3 (0.1-1.0); Monocytes % 5.7 % (1.7-9.3); Neutrophils # 2.9 K/mm3 (1.8-7.8); Neutrophils % 45.2 % (37.0-80.0); Platelet Count 187 K/mm3 (142-424); Red Blood Count 5.35 M/mm3 (4.20-5.40); Red Cell Distribution Width 14.1 % (11.5-17.5); White Blood Count 6.4 K/mm3 (4.8-10.8)
[2022-09-29 15:15] LABS: Alanine Aminotransferase 28 U/L (12-78); Alkaline Phosphatase 108 U/L (38-126); Aspartate Amino Transferase 32 U/L (14-36); Bilirubin,Indirect 0.8 mg/dL (0.0-0.9); Bilirubin,Total 0.8 mg/dl (0.2-1.3); Bilirubin,Unconjugated 0.8 mg/dL (0.0-1.1); Blood Urea Nitrogen 18 mg/dl (7-17); Calcium 8.9 mg/dl (8.4-10.2); Carbon Dioxide 25 mmol/L (22.0-30.0); Chloride 110 mmol/L (98-107); Chol/HDL Ratio 5.1 (1-3.5); Cholesterol 240 mg/dl (140-200); Estimated Glomerular Filt Rate 71 ml/min (>60); GFR (African American) 86 ML/MIN (>60); Glucose 93 mg/dl (74-100); HDL Cholesterol 47 mg/dl (40-60); Triglycerides 188 mg/dl (30-150); VLDL Cholesterol 38 mg/dL (0-40)
[2022-09-29 15:32] LABS: Free T4 (Free Thyroxine) 1.09 ng/dl (0.78-2.19)
[2022-09-29 15:47] LABS: Thyroid Stimulating Hormone 1.35 uIU/mL (0.465-4.68)
[2022-09-29 16:13] LABS: Anion Gap 12.4 mEq/L (5-15); Potassium 4.4 mmoL/L (3.5-5.1); Sodium 143 mmol/L (136-145)
== END ==
PROVIDERS: PCP Emergency Medicine; Visit Provider Nurse Practitioner
DX: R06.00 Dyspnea, unspecified (principal); I11.9 Hypertensive heart disease without heart failure; E78.5 Hyperlipidemia, unspecified; I63.9 Cerebral infarction, unspecified; J44.9 Chronic obstructive pulmonary disease, unspecified; K21.9 Gastro-esophageal reflux disease without esophagitis; E11.9 Type 2 diabetes mellitus without complications; E66.9 Obesity, unspecified; Z68.35 Body mass index [BMI] 35.0-35.9, adult
CPT/HCPCS: 36415; 80048; 80061; 80076; 84439; 84443; 85025

== ENCOUNTER → 2022-10-16 14:28 | Outpatient (CLI) | payer OTHER, SELFPAY | PROVIDERS: PCP Emergency Medicine; Visit Provider Emergency Medicine | DX: N39.0 Urinary tract infection, site not specified (principal); B96.29 Other Escherichia coli [E. coli] as the cause of diseases classified elsewhere | CPT/HCPCS: 87086; 87088; 87186 ==

== ENCOUNTER → 2023-01-04 14:00 | Outpatient (CLI) | payer OTHER, SELFPAY ==
--- NOTE | 2023-01-04 14:01 | CT_ITS ---
FINAL REPORT TECHNIQUE: Thin section axial images were obtained through the lungs using a low-dose technique per lung cancer screening protocol. Reconstruction images were obtained using the axial data. Exam was performed using dose reduction technique. CLINICAL HISTORY: lung cancer screening, former smoker - less than 1 ppd x53 yrs. COPD. Hx of skin cancer. Niece has hx of lung cancer. Exposed to vape. COMPARISON: CT angiography of the chest from 09/20/2021 FINDINGS: CTDLvol: 2.9 DLP: 103.68 Former smoker 50 pack year history Lungs: Changes of emphysema are present. No suspicious nodules. Lymph nodes: No thoracic lymphadenopathy. Mediastinum: Heart size is normal. Prominent coronary artery calcifications are present, responsible for the S designation. Pleura/pericardium: No pleural or pericardial effusion. Other: There is a hypodense lesion in the posterior dome of the right lobe of the liver, stable since the prior CT of 2021. Would consider MRI for evaluation of the liver as clinically indicated. IMPRESSION: No suspicious pulmonary nodule or mass. Hypodense lesion in the posterior right lobe dome of the liver, stable since 2021. She is incompletely imaged, and would consider MRI of the liver for further evaluation. Severe coronary artery calcifications responsible for the S designation in this patient. Lung RADS: 1S Recommendation: 12-month follow-up LDCT. Reviewed, Interpreted and Dictated by Juliette Byrnes MD Transcribed by Dilcia Reid Authenticated and [facility]
== END ==
PROVIDERS: PCP Emergency Medicine; Visit Provider Internal Medicine Pulmonary Disease
DX: Z12.2 Encounter for screening for malignant neoplasm of respiratory organs; Z87.891 Personal history of nicotine dependence
CPT/HCPCS: 71271

== ENCOUNTER 2023-04-22 12:03 | Outpatient (CLI) | payer OTHER, SELFPAY ==
[2023-04-22 12:29] LABS: Basophils % 0.5 % (0.1-2.0); Eosinophils # 0.2 K/mm3 (0.0-0.4); Eosinophils % 2.8 % (0.1-12.0); Hematocrit 50.8 % (37.0-47.0); Hemoglobin 16.5 g/dL (12.2-16.2); Lymphocytes # 3.6 K/mm3 (0.7-4.5); Lymphocytes % 48.4 % (10-50); Mean Corpuscular HGB Conc 32.6 g/dL (31.8-35.4); Mean Corpuscular Hemoglobin 30.2 pg (27.0-31.2); Mean Corpuscular Volume 92.6 fl (81-99); Mean Platelet Volume 8.4 fl (7.4-10.4); Monocytes # 0.5 K/mm3 (0.1-1.0); Monocytes % 6.2 % (1.7-9.3); Neutrophils # 3.2 K/mm3 (1.8-7.8); Neutrophils % 42.1 % (37.0-80.0); Platelet Count 199 K/mm3 (142-424); Red Blood Count 5.48 M/mm3 (4.20-5.40); White Blood Count 7.5 K/mm3 (4.8-10.8)
[2023-04-22 12:32] LABS: Alanine Aminotransferase 33 U/L (12-78); Albumin Level 4.1 g/dl (3.5-5.0); Albumin/Globulin Ratio 1.3 (1.1-1.8); Alkaline Phosphatase 105 U/L (38-126); Anion Gap 14.4 mEq/L (5-15); Aspartate Amino Transferase 32 U/L (14-36); Blood Urea Nitrogen 16 mg/dl (7-17); Calcium 9.3 mg/dl (8.4-10.2); Carbon Dioxide 22 mmol/L (22.0-30.0); Chloride 110 mmol/L (98-107); Chol/HDL Ratio 6.2 (1-3.5); Cholesterol 249 mg/dl (140-200); Estimated Glomerular Filt Rate 71 ml/min (>60); GFR (African American) 85 ML/MIN (>60); Globulin 3.1 g/dL (1.3-3.2); Glucose 103 mg/dl (74-100); HDL Cholesterol 40 mg/dl (40-60); Potassium 4.4 mmoL/L (3.5-5.1); Sodium 142 mmol/L (136-145); Total Protein,Serum 7.2 g/dl (6.3-8.2); Triglycerides 187 mg/dl (30-150); VLDL Cholesterol 37 mg/dL (0-40)
[2023-04-22 12:50] LABS: 25-OH Vitamin D, Total 30.6 ng/mL (30-100)
[2023-04-22 13:03] LABS: Thyroid Stimulating Hormone 1.65 uIU/mL (0.465-4.68)
[2023-04-22 13:22] LABS: Vitamin B12 283 pg/mL (239-931)
[2023-04-22 13:42] LABS: Direct LDL Cholesterol 157.35 mg/dL (100-129)
[2023-04-22 13:45] LABS: Hemoglobin A1C 5.9 % (4.0-6.0)
== END 2023-04-22 23:59 ==
LOC: LAB.DROPOF 12:04
PROVIDERS: PCP Family Medicine; Visit Provider Family Medicine
DX: E78.5 Hyperlipidemia, unspecified (principal); J44.9 Chronic obstructive pulmonary disease, unspecified; R39.9 Unspecified symptoms and signs involving the genitourinary system; E66.9 Obesity, unspecified; B96.29 Other Escherichia coli [E. coli] as the cause of diseases classified elsewhere; Z68.34 Body mass index [BMI] 34.0-34.9, adult; Z79.899 Other long term (current) drug therapy
CPT/HCPCS: 80053; 80061; 82306; 82607; 83036; 84443; 85025; 87086

== ENCOUNTER 2023-11-03 14:22 | Outpatient (CLI) | payer OTHER, SELFPAY ==
[2023-11-03 14:56] LABS: Basophils # 0.1 K/mm3 (0-0.2); Basophils % 1.4 % (0.1-2.0); Eosinophils # 0.1 K/mm3 (0.0-0.4); Eosinophils % 1.9 % (0.1-12.0); Hematocrit 46.3 % (37.0-47.0); Hemoglobin 14.5 g/dL (12.2-16.2); Lymphocytes % 48.6 % (10-50); Mean Corpuscular HGB Conc 31.4 g/dL (31.8-35.4); Mean Corpuscular Hemoglobin 29.5 pg (27.0-31.2); Mean Corpuscular Volume 93.9 fl (81-99); Mean Platelet Volume 7.6 fl (7.4-10.4); Monocytes # 0.3 K/mm3 (0.1-1.0); Monocytes % 5.1 % (1.7-9.3); Neutrophils # 2.6 K/mm3 (1.8-7.8); Neutrophils % 42.9 % (37.0-80.0); Platelet Count 207 K/mm3 (142-424); Red Blood Count 4.93 M/mm3 (4.20-5.40); Red Cell Distribution Width 14.3 % (11.5-17.5); White Blood Count 6.1 K/mm3 (4.8-10.8)
[2023-11-03 15:02] LABS: Activated Partial Thrombo Time 27.6 seconds (22.8-30.6); INR 0.92 (0.9-1.1); Prothrombin Time 10.4 seconds (10.1-12.5)
[2023-11-03 16:09] LABS: Alanine Aminotransferase 24 U/L (12-78); Albumin Level 3.7 g/dl (3.5-5.0); Albumin/Globulin Ratio 1.1 (1.1-1.8); Alkaline Phosphatase 99 U/L (38-126); Anion Gap 8.8 mEq/L (5-15); Aspartate Amino Transferase 29 U/L (14-36); Bilirubin,Total 0.7 mg/dl (0.2-1.3); Blood Urea Nitrogen 9 mg/dl (7-17); Carbon Dioxide 24 mmol/L (22.0-30.0); Chloride 112 mmol/L (98-107); Chol/HDL Ratio 5.6 (1-3.5); Cholesterol 218 mg/dl (140-200); Estimated Glomerular Filt Rate 98 ml/min (>60); GFR (African American) 119 ML/MIN (>60); Globulin 3.3 g/dL (1.3-3.2); Glucose 97 mg/dl (74-100); HDL Cholesterol 39 mg/dl (40-60); Potassium 3.8 mmoL/L (3.5-5.1); Sodium 141 mmol/L (136-145); Triglycerides 190 mg/dl (30-150); VLDL Cholesterol 38 mg/dL (0-40)
[2023-11-03 16:40] LABS: Thyroid Stimulating Hormone 1.02 uIU/mL (0.465-4.68)
== END 2023-11-03 23:59 | disposition home or self-care (01) ==
PROVIDERS: PCP Family Medicine; Visit Provider Family Medicine
DX: E78.5 Hyperlipidemia, unspecified (principal); R63.4 Abnormal weight loss; T14.8XXA Other injury of unspecified body region, initial encounter; E03.9 Hypothyroidism, unspecified; R39.9 Unspecified symptoms and signs involving the genitourinary system; N39.0 Urinary tract infection, site not specified
CPT/HCPCS: 36415; 80050; 80053; 80061; 84443; 85025; 85610; 85730; 87086; 87088; 87186

== ENCOUNTER 2023-11-12 06:53 | Outpatient (CLI) | payer OTHER, SELFPAY ==
--- NOTE | 2023-11-12 12:47 | MM_ITS ---
PROCEDURE INFORMATION: Exam: MG Bilateral Screening 3D Mammography Exam date and time: 11/12/2023 12:46 PM Age: 73 years old Clinical indication: Screening examination TECHNIQUE: Imaging protocol: Bilateral Screening tomosynthesis and 2D mammography including computer-aided detection (CAD) when performed. COMPARISON: 1. MG DMSB DIG MAMM-SCREEN DEANN 02/11/2016 4:27 PM 2. MG MAMMO 05/24/2008 12:00 PM FINDINGS: MAMMOGRAPHY: Breast composition: There are scattered areas of fibroglandular density. Mass: No suspicious masses. Architectural distortion: None. Calcifications: No suspicious calcifications. Asymmetric density: None. Skin thickening: None. Axillary adenopathy: None. IMPRESSION: No mammographic evidence of malignancy. Annual screening is recommended unless otherwise clinically indicated. ASSESSMENT: BI-RADS Category 1: Negative.
== END 2023-11-12 23:59 | disposition home or self-care (01) ==
PROVIDERS: PCP Family Medicine; Visit Provider Family Medicine
DX: Z12.39 Encounter for other screening for malignant neoplasm of breast (principal); J43.9 Emphysema, unspecified
CPT/HCPCS: 77063; 77067; 94762

== ENCOUNTER 2024-01-28 14:18 | Outpatient (CLI) | payer OTHER, SELFPAY ==
--- NOTE | 2024-01-28 14:19 | CT_ITS ---
FINAL REPORT TECHNIQUE: Thin section axial images were obtained through the lungs using a low-dose technique per lung cancer screening protocol. Reconstruction images were obtained using the axial data. Exam was performed using dose reduction technique. CLINICAL HISTORY: lung cancer screening FORMER SMOKER QUIT 9 YEARS AGO 1PPD X53 YEARS COMPARISON: 01/04/2023 FINDINGS: CTDI vol: 2.9 DLP: 96.38 Former smoker 53 pack year history Lungs: There is emphysema and evidence of prior granulomatous disease. No suspicious nodules. Lymph nodes: No thoracic lymphadenopathy. Mediastinum: Heart size is normal. There are prominent coronary artery calcifications Pleura/pericardium: No pleural or pericardial effusion. Other: A hypodense lesion in the posterior right hepatic lobe is unchanged. There is a hiatal hernia. No acute abnormality in the upper abdomen. IMPRESSION: No suspicious pulmonary nodule or mass. Prominent coronary artery calcifications. Stable hypodense liver lesion. This may be a cyst. Lung RADS: 1 S Recommendation: 12-month follow-up low-dose chest CT. Authenticated and [facility]
== END 2024-01-28 23:59 | disposition home or self-care (01) ==
LOC: RAD 14:19
PROVIDERS: PCP Family Medicine; Visit Provider Internal Medicine Pulmonary Disease
DX: F17.210 Nicotine dependence, cigarettes, uncomplicated (principal)
CPT/HCPCS: 71271

== ENCOUNTER 2024-02-01 14:00 | Outpatient (CLI) | payer OTHER, SELFPAY | END 2024-02-01 23:59 | disposition home or self-care (01) | LOC: LAB.DROPOF 02-02 09:58 | PROVIDERS: PCP Family Medicine; Visit Provider Family Medicine | DX: N30.90 Cystitis, unspecified without hematuria (principal) | CPT/HCPCS: 87086; 87088; 87186 ==

== ENCOUNTER 2024-05-02 21:18 | Outpatient (CLI) | payer OTHER, SELFPAY ==
[2024-05-02 22:55] LABS: Albumin Level 4.3 g/dl (3.5-5.0); Chloride 108 mmol/L (98-107); Potassium 4.9 mmoL/L (3.5-5.1); Sodium 140 mmol/L (136-145)
[2024-05-02 22:58] LABS: Alanine Aminotransferase 25 U/L (12-78); Albumin/Globulin Ratio 1.4 (1.1-1.8); Alkaline Phosphatase 117 U/L (38-126); Anion Gap 15.9 mEq/L (5-15); Aspartate Amino Transferase 28 U/L (14-36); Bilirubin,Total 0.7 mg/dl (0.2-1.3); Blood Urea Nitrogen 14 mg/dl (7-17); Calcium 9.2 mg/dl (8.4-10.2); Carbon Dioxide 21 mmol/L (22.0-30.0); Cholesterol 246 mg/dl (140-200); Estimated Glomerular Filt Rate 82 ml/min (>60); GFR (African American) 99 ML/MIN (>60); Glucose 89 mg/dl (74-100); Total Protein,Serum 7.3 g/dl (6.3-8.2); Triglycerides 204 mg/dl (30-150); VLDL Cholesterol 41 mg/dL (0-40)
[2024-05-02 22:59] LABS: HDL Cholesterol 50 mg/dl (40-60)
[2024-05-02 23:10] LABS: Direct LDL Cholesterol 149.09 mg/dL (100-129)
[2024-05-02 23:35] LABS: Chol/HDL Ratio 4.9 (1-3.5)
[2024-05-03 00:25] LABS: Hemoglobin A1C 5.8 % (4.0-6.0)
== END 2024-05-02 23:59 | disposition home or self-care (01) ==
LOC: LAB.DROPOF 21:20
PROVIDERS: PCP Family Medicine; Visit Provider Family Medicine
DX: R73.03 Prediabetes (principal); E78.5 Hyperlipidemia, unspecified; R39.9 Unspecified symptoms and signs involving the genitourinary system
CPT/HCPCS: 80053; 80061; 83036

== ENCOUNTER 2024-11-24 09:00 | Outpatient (CLI) | payer OTHER, SELFPAY ==
--- OUTSIDE RECORDS SUMMARY | 2000-04-29 11:32 | XMS_ITS | Continuity of Care Document ---
Author Organization [facility] Address [address] [place] [phone] Phone Care Team Providers Care Front Desk Person Name Role Phone Guanakito Lowery MD Unavailable Unavailable Medications Medication Instructions Dosage Effective Dates (start - s top) Status Comments Advil 200 mg Tab PRN - Active Advance Directives Directive Yes / No Effective Date File Name No Information Encounters Encounter Description Practice Location Reason(s) For Visit Diagnoses Date Provider Providers Copied on Encounter [facility], [address] [place] [address], [id number] tel:[phone] [facility] [employer] No Information 1-200 1 Sebastián Calabrese. [address] [place] [address], [id number], [place]. tel:[phone] [facility], [address] [place] [address], [id number] tel:[phone] [facility] [employer] No Information 200 1 Sebastián Calabrese. [address] [place] [address], [id number], [place]. tel:[phone] Family History Family Member Type Diagnosis Age At Onset No Information Payers Payer name Insurance type Covered alliance party ID Authoriza tion(s) No Information Social History Type Description Quantity Date Captured Comments Sex Female Smoking Status No Information Chief Complaint And Reason For Visit No Information Reason For Referral Reason For Referral No Information History Of Present Illness Encounter Date Complaint History Of Prese nt Illness No Information Functional Status Date Functional Assessmen t No Information Instructions Date Instruction Additional Infor mation No Information Assessments Type Assessment Date No Information Patient Care Teams Name Effective Dates (start - stop) Status Members No Information
[2024-11-24 15:40] LABS: Hematocrit 49.3 % (37.0-47.0); Hemoglobin 16.4 g/dL (12.2-16.2); Immature Granulocytes % 0.2 %; Mean Corpuscular HGB Conc 33.3 g/dL (31.8-35.4); Mean Corpuscular Hemoglobin 30.3 pg (27.0-31.2); Mean Corpuscular Volume 91.1 fl (81-99); Nucleated Red Blood Cells % 0 %; Platelet Count 142 K/mm3 (142-424); Red Blood Count 5.41 M/mm3 (4.20-5.40); Red Cell Distribution Width-SD 47.0 fL; White Blood Count 6.5 K/mm3 (4.8-10.8)
[2024-11-24 16:38] LABS: Alanine Aminotransferase 19 U/L (12-78); Albumin Level 4.2 g/dl (3.5-5.0); Albumin/Globulin Ratio 1.4 (1.1-1.8); Alkaline Phosphatase 90 U/L (38-126); Anion Gap 12.5 mEq/L (5-15); Aspartate Amino Transferase 26 U/L (14-36); Bilirubin,Total 1.0 mg/dl (0.2-1.3); Blood Urea Nitrogen 14 mg/dl (7-17); Calcium 9.2 mg/dl (8.4-10.2); Carbon Dioxide 24 mmol/L (22.0-30.0); Chloride 107 mmol/L (98-107); Cholesterol 236 mg/dl (140-200); Creatinine,Serum 0.80 mg/dl (0.52-1.04); Estimated Glomerular Filt Rate 70 ml/min (>60); GFR (African American) 85 ML/MIN (>60); Globulin 3.0 g/dL (1.3-3.2); Glucose 100 mg/dl (74-100); HDL Cholesterol 48 mg/dl (40-60); Potassium 4.5 mmoL/L (3.5-5.1); Sodium 139 mmol/L (136-145); Total Protein,Serum 7.2 g/dl (6.3-8.2); Triglycerides 219 mg/dl (30-150)
--- OUTSIDE RECORDS SUMMARY | 2024-11-27 10:45 | XMS_ITS | Clinical Summary ---
Author Organization [facility] Address [address] [place] [address] Care Team Providers Care Pantry Cook Name Role Phone Imtiaz Branch MD Primary Care Provider [phone]- [phone] Social History Tobacco Use Types Packs/Day Years Used Date Smoking Tobacco: Never Assessed Comments Unknown Sex and Gender Information Value Date Recorded Sex Assigned at Not on file Legal Sex Female 6:20 PM EDT Gender Identity Not on file Sexual Orientation Not on file Plan of Treatment Health Maintenance Due Date Last Done Comments [facility]-Bone Density Scan 1950 [facility]-Depression Screening 1950 [facility]-/Child/Adol SDOH Screenings 1950 [facility]- SDOH Screenings 1969 [facility]-Adult SDOH Screenings 1969 [facility]-DTaP,Tdap,and Td Vaccine s (1 - Tdap) 1970 CT Colonography 1996 Colonoscopy 1996 FIT-DNA 1996 FIT 1996 FOBT 1996 Sigmoidoscopy 1996 [facility]-Colorectal Cancer Screening 1996 [facility]-Zoster Vaccines (1 of 2) 2001 [facility]-Pneumococcal Vaccine: 50 + Years (2 of 2 - PCV20 or PCV21) 10/27/2022 10/27/2021 [id number] Vaccine (1 - 20 24-25 season) 2024 [facility]-Influenza Vaccine (#1) 2024 [facility]-RSV Vaccine: 60+ Years o r (1 - 1-dose 75+ series) 2026 HPV Vaccines Aged Out No longer eligi ble based on patient's age to complete this topic [facility]-HIB Vaccines Aged Out No longer e ligible based on patient's age to complete this topic [facility]-Hepatitis A Vaccines Aged Out No longer eligible based on patient's age to complete this topic [facility]-IPV Vaccines Aged Out No longer e ligible based on patient's age to complete this topic [facility]-Rotavirus Vaccines Aged Out No lo nger eligible based on patient's age to complete this topic Insurance MEDICAID Care Teams Pantry Cook Relationship Specialty Start Date End Date Imtiaz Branch MD [address] [place] [address] [place] [address] PCP - General 07/12/20
== END 2024-11-24 23:59 ==
LOC: LAB.DROPOF 11-27 10:34
PROVIDERS: PCP Family Medicine; Visit Provider Family Medicine
DX: J44.9 Chronic obstructive pulmonary disease, unspecified (principal); E78.5 Hyperlipidemia, unspecified
CPT/HCPCS: 80053; 80061; 85025

== ENCOUNTER 2024-12-29 14:31 | Outpatient (CLI) | payer OTHER, SELFPAY ==
--- OUTSIDE RECORDS SUMMARY | 2000-04-29 11:32 | XMS_ITS | Continuity of Care Document ---
Author Organization [facility] Address [address] [place] [phone] Phone Care Team Providers Care Receptionist Nurse Name Role Phone Guanakito Lowery MD Unavailable Unavailable Medications Medication Instructions Dosage Effective Dates (start - s top) Status Comments Advil 200 mg Tab PRN - Active Advance Directives Directive Yes / No Effective Date File Name No Information Encounters Encounter Description Practice Location Reason(s) For Visit Diagnoses Date Provider Providers Copied on Encounter [facility], [address] [place] [address], [id number] tel:[phone] [facility] [employer] No Information 1-200 1 Sebastián Calabrese. [address] [place] [address], [id number], [place]. tel:[phone] [facility], [address] [place] [address], [id number] tel:[phone] [facility] [employer] No Information 200 1 Sebastián Calabrese. [address] [place] [address], [id number], [place]. tel:[phone] Family History Family Member Type Diagnosis Age At Onset No Information Payers Payer name Insurance type Covered democrat ID Authoriza tion(s) No Information Social History [...]
--- OUTSIDE RECORDS SUMMARY | 2024-12-29 14:33 | XMS_ITS | Clinical Summary ---
Author Organization [facility] Address [address] [place] [address] Care Team Providers Care Rip Saw Operator Name Role Phone Imtiaz Branch MD Primary Care Provider +1- [phone] Social History Tobacco Use Types Packs/Day Years Used Date Smoking Tobacco: Never Assessed Comments Unknown Sex and Gender Information Value Date Recorded Sex Assigned at Not on file Legal Sex Female 6:20 PM EDT Gender Identity Not on file Sexual Orientation Not on file Plan of Treatment Health Maintenance Due Date Last Done Comments [facility]-Bone Density Scan 1950 [facility]-Depression Screening 1951 [facility]-Infant/Child/Adol SDOH Screenings 1950 [facility]- SDOH Screenings 1969 [facility]-Adult SDOH Screenings 1969 [facility]-DTaP,Tdap,and Td Vaccine s (1 - Tdap) 1970 CT Colonography 1996 Colonoscopy 1996 FIT-DNA 1996 FIT 1996 FOBT 1996 Sigmoidoscopy 1996 [facility]-Colorectal Cancer Screening 1996 [facility]-Zoster Vaccines (1 of 2) 2001 [facility]-Pneumococcal Vaccine: 50 + Years (2 of 2 - PCV20 or PCV21) 10/27/2022 10/27/2021 [id number] Vaccine (1 - 20 24-25 season) 2024 [...] complete this topic Insurance MEDICAID Care Teams Rip Saw Operator Relationship Specialty Start Date End Date Imtiaz Branch MD [address] [place] [address] [place] [id number] PCP - General 07/12/20
--- NOTE | 2024-12-29 15:00 | CT_ITS ---
FINAL REPORT TECHNIQUE: Thin section axial images were obtained through the lungs using a low-dose technique per lung cancer screening protocol. Reconstruction images were obtained using the axial data. Exam was performed using dose reduction technique. CLINICAL HISTORY: lung cancer screening former smoker quit 8 year ago, 1/2ppd x53 years COMPARISON: 01/28/2024 FINDINGS: CTDLvol: 2.90 DLP: 102.12 Former smoker 26 pack year history Lungs: Changes of emphysema are noted. There is evidence of prior granulomatous disease. The lungs are otherwise clear. No suspicious nodules. Lymph nodes: No thoracic lymphadenopathy. Mediastinum: Heart size is normal. Prominent coronary artery calcifications. Pleura/pericardium: No pleural or pericardial effusion. Other: No acute abnormality in the upper abdomen. Stable hypodense lesion in the dome of the liver which may be a cyst. IMPRESSION: No suspicious pulmonary nodule or mass. Modifier S: Prominent coronary artery calcifications; stable hypodense lesion in the liver. Lung RADS: 1S Recommendation: 12-month follow-up low-dose chest CT Reviewed, Interpreted and Dictated by Juliette Byrnes MD Transcribed by Kelley Shah Authenticated and [facility]
--- NOTE | 2024-12-29 15:30 | MM_ITS ---
PROCEDURE INFORMATION: Exam: MG Bilateral Screening 3D Mammography Exam date and time: 12/29/2024 3:23 PM Age: 74 years old Clinical indication: Screening examination. Her sister and maternal cousins had breast cancer. TECHNIQUE: Imaging protocol: Bilateral Screening tomosynthesis and 2D mammography including computer-aided detection (CAD) when performed. COMPARISON: 1. MG MM DIG SCREENING MAMM BI W/CAD 11/12/2023 12:46 PM 2. MG DMSB DIG MAMM-SCREEN DEANN 02/11/2016 4:27 PM 3. MG MAMMO 05/24/2008 12:00 PM FINDINGS: MAMMOGRAPHY: Breast composition: There are scattered areas of fibroglandular density. Mass: Stable right subareolar mass. No new or suspicious mass. Architectural distortion: None. Calcifications: No suspicious calcifications. Asymmetric density: None. Skin thickening: None. Axillary adenopathy: None. IMPRESSION: No mammographic evidence of malignancy. Annual screening is recommended unless otherwise clinically indicated. ASSESSMENT: BI-RADS Category 2: Benign.
== END 2024-12-29 23:59 | disposition home or self-care (01) ==
LOC: RAD 14:31
PROVIDERS: PCP Family Medicine; Visit Provider Family Medicine
DX: Z12.31 Encounter for screening mammogram for malignant neoplasm of breast (principal); I25.10 Atherosclerotic heart disease of native coronary artery without angina pectoris; R92.323 Mammographic fibroglandular density, bilateral breasts; Z12.2 Encounter for screening for malignant neoplasm of respiratory organs; Z87.891 Personal history of nicotine dependence; Z80.3 Family history of malignant neoplasm of breast
CPT/HCPCS: 71271; 77063; 77067